=== PATIENT | female | born 1960 | race Caucasian/White ===

== ENCOUNTER 2021-07-14 09:49 | Outpatient (CLI) | payer MEDICARE, MEDICAID, SELFPAY ==
--- NOTE | 2021-07-14 18:36 | STRESSREP_ITS ---
Stress Test Report Original Note: Stress Test Report Exercise stress test. 61-year-old lady with a history of chest pain pain Medications metoprolol gabapentin. Stress protocol: Resting EKG demonstrates normal sinus rhythm with a rate of 71 bpm normal intervals are noted resting blood pressure is 120/84 mmHg. The patient exercised according to regular Yovani protocol for total duration of 2 minutes and 50 seconds. The maximum heart rate attained was 108 bpm which was 67% of max impact at heart rate maximum workload was 4.6 metabolic equivalents. At res t there were no ST or T wave changes noted to suggest ischemia and at peak exercise nonspecific ST changes were noted which did not meet the criteria for ischemia. The peak blood pressure was 144/82 mmHg. The patient apparently could not keep up with the treadmill speed. Conclusion Stress test with no EKG criteria for ischemia at a low workload. The low workload attained may affect sensitivity for detection of ischemia.
== END 2021-07-14 23:59 | disposition home or self-care (01) ==
LOC: CVS 09:51
PROVIDERS: PCP Family Medicine; Referring Provider Family Medicine; Visit Provider Family Medicine
DX: R07.89 Other chest pain (principal); F17.200 Nicotine dependence, unspecified, uncomplicated; E78.2 Mixed hyperlipidemia; Z86.73 Personal history of transient ischemic attack (TIA), and cerebral infarction without residual deficits
CPT/HCPCS: 93017

== ENCOUNTER 2021-07-30 06:35 | Outpatient (CLI) | payer MEDICARE, MEDICAID, SELFPAY ==
--- NOTE | 2021-07-30 09:20 | STRESSREP ---
Stress Test Report Date: 07-30-2021 Procedure: Pharmacologic stress nuclear imaging study Indications: Chest pain; preoperative cardiovascular evaluation Consent: Per the patient Procedure: The patient underwent pharmacologic (Regadenoson 0.4mg ) evaluation with a peak heart rate of 112 beats per minute (70%predicted maximal heart rate) and a peak blood pressure of 122/84 mmHg. The baseline ECG demonstrated normal sinus rhythm. The peak pharmacologic ECG demonstrated no obvious ECG changes. There were no cardiac dysrhythmias pretest, during pharmacologic infusion, or recovery. There was no complaint of chest discomfort during pharmacologic infusion or recovery. The examination was discontinued secondary to completion of protocol. Impression: 1. Pharmacologic (Regadenoson) evaluation 2. Peak pharmacologic ECG with no obvious ECG changes. 3. There were no cardiac dysrhythmias pretest, during pharmacologic infusion, or recovery. 4. Nuclear images pending Myocardial perfusion imaging study: Technique: The patient was injected with 14.5 millicuries of technetium 99m Cardiolite and subsequently rest SPECT Cardiolite nuclear imaging was obtained in the horizontal long, vertical long, and short axis views. The patient underwent pharmacologic (Regadenoson) evaluation with a peak heart rate of 112 beats per minute (70% percent predicted maximal heart rate) and a peak blood pressure of 124/84 mmHg. The patient was injected with 44.1 millicuries of technetium 99m Cardiolite and subsequently stress SPECT Cardiolite nuclear imaging was obtained in the horizontal long, vertical long, and short axis views. A gated Cardiolite study at peak stress was obtained. Interpretation: Rest and stress SPECT Cardiolite nuclear imaging status post realignment, normalization, and attenuation correction demonstrate the appearance of an area of diminished myocardial perfusion/tracer uptake in portions of the distal anterolateral segments which appears to be somewhat more prominent at rest as opposed to stress. There is end systolic thickening and brightening. The gated Cardiolite study demonstrates myocardial thickening and inward wall motion. The reported LVEF is 80%. Impression: 1. Rest and stress SPECT current nuclear imaging demonstrate myocardial perfusion changes in the distal anterolateral segments which appears to be somewhat more prominent at rest as opposed to stress potentially compatible with the effects of shifting soft tissue attenuation/artifact although an area of previous myocardial injury/infarction cannot necessarily be excluded with no myocardial perfusion changes considered diagnostic for associated stress-induced myocardial ischemia. 2. The gated Cardiolite study reports an LVEF of 80%. Comment: Consider further evaluation of left ventricular wall motion and systolic function with a transthoracic echocardiogram if clinically indicated. This note was generated with [employer] dictation software. It may contain incorrect words, spelling, and punctuation that were not noted in checking the note before signing.
== END 2021-07-30 23:59 | disposition home or self-care (01) ==
LOC: CVS 06:36
PROVIDERS: PCP Family Medicine; Referring Provider Family Medicine; Visit Provider Family Medicine
DX: R07.89 Other chest pain (principal)
CPT/HCPCS: 78452; 93017; A9500; A4216; J2785

== ENCOUNTER 2022-01-10 15:08 | Inpatient (IN) | payer MEDICARE, MEDICAID, SELFPAY ==
[2022-01-10] VITALS (9 sets, daily range): BP systolic 101–124; BP diastolic 63–89; PULSE 64–69; RESP 15–22; TEMP 35.9–36.7; O2SAT 87–97; BMI 34.6; BMI 33.7
--- NOTE | 2022-01-10 15:34 | NURSING ---
NO OLD EKGS
--- NOTE | 2022-01-10 15:42 | EKG12_ITS ---
Test Reason : SOB Blood Pressure : / mmHG Vent. Rate : 065 BPM Atrial Rate : 065 BPM P-R Int : 154 ms QRS Dur : 082 ms QT Int : 402 ms P-R-T Axes : -05 062 005 degrees QTc Int : 418 ms Normal sinus rhythm Normal ECG No previous ECGs available Confirmed by ANN ALEXANDER, RENE ([id number]), food editor LOPEZ GOVEA ([id number]) on 01/14/2022 2:38:24 PM Referred By: WILLIAM Confirmed By:CHARLY JUAREZ MD
[2022-01-10 16:19] LABS: Absolute Lymphocyte Count 2.07 X10^3/uL (0.83-4.51); Absolute Neutrophil Count 4.3 X10^3/uL (2.0-7.7); Basophil# 0.04 X10^3/uL; Basophil% 0.6 % (0-1); Eosinophil# 0.09 X10^3/uL; Eosinophils% 1.3 % (0-5); Hematocrit 48.3 % (37-47); Hemoglobin 15.5 g/dL (12.0-15.0); Lymphocyte # 2.07 X10^3/ul (0.83-4.51); Lymphocyte % 29.3 % (19-41); Mean Corp Hgb Conc 32.1 g/dL (32-36); Mean Corpuscular Hgb 29.8 pg (27.0-32.0); Mean Corpuscular Volume 92.9 fL (81-99); Monocyte# 0.55 X10^3/uL; Monocyte% 7.8 % (0-10); NRBC Flagged by Analyzer 0 % (0-5); Neutrophil % 60.9 % (47-70); Platelet Count 276 K/mm3 (150-450); RBC Distribution Width CV 14.3 % (11.6-14.6); RBC Distribution Width SD 49.1 fl (35.1-43.9); White Blood Count 7.1 K/mm3 (4.4-11.0)
--- NOTE | 2022-01-10 16:25 | ED.VIS.DYS ---
HPI History of Present Illness Chief Complaint: Shortness of Breath Narrative Narrative: 61-year-old female with history of COPD, asthma presenting with shortness of breath for about a week. She is describing coughing. Without production of sputum. She is not had fever, chills, body aches but does states she feels generally weak. He is not having any chest pain. Patient does not usually wear oxygen at home. She does not feel like he is wheezing. She is describing dyspnea on exertion and orthopnea. She states that when she lays down at night she has trouble breathing and this wakes her up from sleep and she feels like her heart quits. She is having some diarrhea but has not having nausea or vomiting. No history of DVT/PE. PFSH PFSH Medical History Anxiety and depression AVM (arteriovenous malformation) brain COPD with asthma GERD (gastroesophageal reflux disease) History of CVA (cerebrovascular accident) HLD (hyperlipidemia) HTN (hypertension) Obesity PTSD (post-traumatic stress disorder) Tobacco use Home Medications atorvastatin 80 mg tablet 80 mg PO DAILY 01/10/22 [History Last Taken Unknown] clopidogrel 75 mg tablet 75 mg PO DAILY 01/10/22 [History Last Taken Unknown] dicyclomine 10 mg capsule 10 mg PO DAILY 01/10/22 [History Last Taken Unknown] gabapentin 600 mg tablet 600 mg PO TID 01/10/22 [History Last Taken Unknown] loratadine 10 mg tablet 10 mg PO DAILY 01/10/22 [History Last Taken Unknown] metoprolol succinate 50 mg capsule sprinkle, ext. release 24 hr 50 mg PO DAILY 01/10/22 [History Last Taken Unknown] pantoprazole 40 mg tablet,delayed release 40 mg PO DAILY 01/10/22 [History Last Taken Unknown] quetiapine 100 mg tablet (Seroquel) 100 mg PO QHS 01/10/22 [History Last Taken Unknown] spironolactone 100 mg tablet 100 mg PO DAILY 01/10/22 [History Last Taken Unknown] zonisamide 50 mg capsule 50 mg PO DAILY 01/10/22 [History Last Taken Unknown] Allergy/AdvReac Type Severity Reaction Status Date / Time aspirin Allergy Other Verified 01/10/22 15:11 Penicillins Allergy Angioedema Verified 01/10/22 15:11 acetaminophen [From [facility]] AdvReac Other Verified 01/10/22 15:11 hydrocodone [From [facility]] AdvReac Other Verified 01/10/22 15:11 Family History (Updated 01/10/22 @ 19:[address] Mana Juarez MD) Mother Thyroid disorder Cancer Lung CA with tobacco use history. Father Cerebral hemorrhage in his youth in the secondary to trauma, reported cerebral hemorrhage as one trauma but had additional injuries as well. Surgical History (Updated 01/10/22 @ 19:[address] Mana Juarez MD) H/O brain surgery H/O right knee surgery History of appendectomy History of hysterectomy Social History (Updated 01/10/22 @ 19:[address] Mana Juarez MD) household members: spouse Smoking Status: Current every day smoker tobacco type: cigarettes Smoking packs per day: 1 Smoking cigarettes per day: 20.0 Years smoked: 50 Smoking pack-years: 50.00 alcohol intake: current alcohol intake frequency: holidays/special occasions only substance use type: does not use EXAM Physical Exam Const Vital Signs: 01/10/22 15:11 01/10/22 15:25 01/10/22 15:28 Temperature 96.7 F L Temperature Source Temporal Pulse Rate 69 Respiratory Rate 22 H Respiratory Effort Respiratory Depth Respiratory Pattern Blood Pressure 101/63 Blood Pressure Mean 75 Pulse Ox 91 87 91 Oxygen Delivery Method Room Air Room Air Nasal Cannula Oxygen Flow Rate (L/min) 2 01/10/22 16:05 01/10/22 16:35 01/10/22 17:09 Temperature Temperature Source Pulse Rate 64 Respiratory Rate 15 Respiratory Effort Short of Breath Respiratory Depth Normal Respiratory Pattern Normal Blood Pressure Blood Pressure Mean Pulse Ox 94 92 Oxygen Delivery Method Nasal Cannula Nasal Cannula Oxygen Flow Rate (L/min) 2 2 Positive well nourished General Appearance ED: NAD; Negative for pallor HEENT Reports moist mucous membranes Eyes PERRL and EOMs intact bilaterally Neck no lymphadenopathy Resp normal respiratory effort Auscultation: diminished lung sounds right lower Cardio regular rate and regular rhythm GI non-tender Extremity General Extremety ED: Negative for edema or tenderness General Extremity: Negative for edema Neuro oriented x3 and CN's II-XII intact bilaterally Sensorium / Orientation: alert Skin no wounds and skin turgor normal General Skin Exam: Negative for jaundice or pallor MDM MDM MDM Narrative Medical decision making narrative: Patient presenting with dyspnea for the last week. He is describing orthopnea as well has dyspnea on exertion. She is hypoxic and requiring oxygen. He is not experiencing any chest pain. I did obtain an EKG which on my interpretation is normal sinus rhythm with a ventricular rate of 65 bpm without sign of ischemic change or dysrhythmia. Chest x-ray shows a right-sided pleural effusion on my interpretation and the radiologist agree. He does state that there is pneumonia here. Patient does not have elevated white blood cell count and her WBC is 7.1. Hemoglobin medic are stable. Platelets are normal. Renal function electrolytes within normal limits. BNP is normal. High-sensitivity troponin is 4. I do not suspect PE as a source of her symptoms. Likely due to the pleural effusion. I spoke with the hospitalist for admission. Impression: 1. Hypoxic respiratory failure 2. Right pleural effusion 3. Generalized weakness 4. Orthopnea Lab Data Attestation: I reviewed the patient's lab results. Labs: Laboratory Results - last 24 hr 01/10/22 01/10/22 01/10/22 16:10 16:10 16:10 WBC 7.1 RBC 5.20 Hgb 15.5 H Hct 48.3 H MCV 92.9 MCH 29.8 MCHC 32.1 RDW Std Deviation 49.1 H RDW Coeff of Melia 14.3 Plt Count 276 MPV 10.0 Immature Gran % (Auto) 0.100 Neut % (Auto) 60.9 Lymph % (Auto) 29.3 Kendall % (Auto) 7.8 Eos % (Auto) 1.3 Baso % (Auto) 0.6 Absolute Neuts (auto) 4.3 Absolute Lymphs (auto) 2.07 Nucleated RBC % 0 Sodium 140 Potassium 4.3 Chloride 107 Carbon Dioxide 30.0 Anion Gap 3 L BUN 9 Creatinine 0.80 Estim Creat Clear Calc 66.45 Est GFR (MDRD) Af Amer 93 Est GFR (MDRD) Non-Af 77 BUN/Creatinine Ratio 11.2 Glucose 90 Calcium 8.6 Troponin I High Sens B-Natriuretic Peptide 39.5 01/10/22 16:10 WBC RBC Hgb Hct MCV MCH MCHC RDW Std Deviation RDW Coeff of Melia Plt Count MPV Immature Gran % (Auto) Neut % (Auto) Lymph % (Auto) Kendall % (Auto) Eos % (Auto) Baso % (Auto) Absolute Neuts (auto) Absolute Lymphs (auto) Nucleated RBC % Sodium Potassium Chloride Carbon Dioxide Anion Gap BUN Creatinine Estim Creat Clear Calc Est GFR (MDRD) Af Amer Est GFR (MDRD) Non-Af BUN/Creatinine Ratio Glucose Calcium Troponin I High Sens 4 B-Natriuretic Peptide Radiography Diagnostic Testing: Clinical Impression(s) from Imaging Studies Chest X-Ray 01/10/22 16:39 IMPRESSION: Right-sided effusion with right lower lobe pneumonia. Electronically Signed: Raul Chiu MD at 17:05 EDT , Discharge Plan Triage Chief Complaint: Shortness of Breath ED Provider: Ori Madden Dx/Rx/DC Orders Primary Care Provider: Sawyer Bacon
[2022-01-10 16:26] LABS: Anion Gap 3 (5-15); BUN 9 mg/dL (7-18); BUN/Creat Ratio 11.2 RATIO (10-20); Calcium,Total 8.6 mg/dL (8.5-10.1); Chloride 107 mmol/L (98-107); EST Glomerular Filtration Rate 77 mL/min (>60); Est Glom Filt Rate - Afr Amer 93 mL/min (>60); Estimated Creatinine Clearance 66.45 ml/min; Glucose 90 mg/dL (74-106); Potassium 4.3 mmol/L (3.5-5.1); Sodium Level 140 mmol/L (136-145)
--- NOTE | 2022-01-10 16:32 | EKG12_ITS ---
Test Reason : SOB Blood Pressure : / mmHG Vent. Rate : 065 BPM Atrial Rate : 065 BPM P-R Int : 154 ms QRS Dur : 082 ms QT Int : 402 ms P-R-T Axes : -05 062 005 degrees QTc Int : 418 ms Normal sinus rhythm Normal ECG Confirmed by BRITT ALEXANDER, HARRISON ([id number]), editorial specialist LOPEZ GOVEA ([id number]) on 01/12/2022 12:45:48 PM Referred By: WILLIAM Confirmed By:HARRISON DE LA TORRE MD
--- NOTE | 2022-01-10 16:39 | RAD_ITS ---
EXAM: XR CHEST, 1 VIEW CLINICAL INDICATION: cough TECHNIQUE: Frontal view of the chest. This report was created using [employer] report generation technology. COMPARISON: None. FINDINGS: LUNGS AND PLEURAL SPACES: See below. HEART: Unremarkable. Cardiac silhouette not enlarged. MEDIASTINUM: Central airways and mediastinal contour are unremarkable. BONES/JOINTS: There is a moderate right-sided effusion with right lower lobe airspace disease representing pneumonia. SOFT TISSUES: Unremarkable. RAD/Chest 1 View (Portable) IMPRESSION: Right-sided effusion with right lower lobe pneumonia. Electronically Signed: Raul Chiu MD at 17:05 EDT ,
[2022-01-10 16:58] LABS: BNP,B-Type NATRIURETIC PEPTIDE 39.5 pg/mL (0-100)
[2022-01-10 17:42] LABS: Troponin-I HS 4 pg/mL (3.0-54.0)
--- NOTE | 2022-01-10 18:28 | HP.PCM.HOS_ITS ---
HPI - General General Date of Admission: 01/10/22 Date of Service: 01/10/22 Chief Complaint: Dyspnea. HPI Narrative The patient is a 61 y/o F w/ PMHx: Obesity, COPD, Asthma, Tobacco use, HTN, HLD, Anxiety and Depression/PTSD, Hx CVA, Hx Frontal Lobe AVM s/p resection, GERD who presents to the [facility] ED on 01/10/22 with history of progressively worsening dyspnea over the last week with dry nonproductive cough with no fevers or chills nor any body aches but significant fatigue malaise with no associated pleuritic chest discomfort and no specific wheezing however she notes the dyspnea is worse when she exerts herself and she does admit to orthopnea with trouble breathing whenever she attempts to lay down noted to wake her up specifically from sleep feeling like her heart is palpating with incidentally noted loose stools but no nausea or emesis prompting eventual ED evaluation. She does admit that she has been having several weeks to potentially months of right sided pleuritic discomfort, worse with deep inspiratory effort and also with any coughing. She denies marked weight loss or night sweats. Work-up in the ED included T96.7, he art rate 69, BP 101/63, respiratory rate 22, initially 91% on room air however with exertion patient decreased to 87% on room air with improvement to 91 to 94% on 2 L nasal cannula however this is at rest, CBC with WC 7.1, hemoglobin 15.5, platelet 276 without any shift, BMP unremarkable, BNP 39.5, troponin 4, rapid COVID antigen negative, chest x-ray with a right-sided effusion with concern for right lower lobe pneumonia, EKG with sinus rhythm with no acute evidence of ischemia. In the ED discussed patient's presentation with some lower suspicion for pneumonia given no marked fevers, chills, no marked WC elevation or left shift and given long-term history of smoking with ongoing several week to month history of pleuritic discomfort need to further assess for any malignancy as source of findings on chest x-ray to which patient is amenable. [facility] Medical History Anxiety and depression AVM (arteriovenous malformation) brain COPD with asthma GERD (gastroesophageal reflux disease) History of CVA (cerebrovascular accident) HLD (hyperlipidemia) HTN (hypertension) Obesity PTSD (post-traumatic stress disorder) Tobacco use Home Medications atorvastatin 80 mg tablet 80 mg PO DAILY 01/10/22 [History Last Taken Unknown] clopidogrel 75 mg tablet 75 mg PO DAILY 01/10/22 [History Last Taken Unknown] dicyclomine 10 mg capsule 10 mg PO DAILY 01/10/22 [History Last Taken Unknown] gabapentin 600 mg tablet 600 mg PO TID 01/10/22 [History Last Taken Unknown] loratadine 10 mg tablet 10 mg PO DAILY 01/10/22 [History Last Taken Unknown] metoprolol succinate 50 mg capsule sprinkle, ext. release 24 hr 50 mg PO DAILY 01/10/22 [History Last Taken Unknown] pantoprazole 40 mg tablet,delayed release 40 mg PO DAILY 01/10/22 [History Last Taken Unknown] quetiapine 100 mg tablet (Seroquel) 100 mg PO QHS 01/10/22 [History Last Taken Unknown] spironolactone 100 mg tablet 100 mg PO DAILY 01/10/22 [History Last Taken Unknown] zonisamide 50 mg capsule 50 mg PO DAILY 01/10/22 [History Last Taken Unknown] Allergy/AdvReac Type Severity Reaction Status Date / Time aspirin Allergy Other Verified 01/10/22 15:11 Penicillins Allergy Angioedema Verified 01/10/22 15:11 acetaminophen [From [place]] AdvReac Other Verified 01/10/22 15:11 hydrocodone [From [place]] AdvReac Other Verified 01/10/22 15:11 Family History (Updated 01/10/22 @ 19:[address] Mana Juarez MD) Mother Thyroid disorder Cancer Lung CA with tobacco use history. Father Cerebral hemorrhage in his youth in the secondary to trauma, reported cerebral hemorrhage as one trauma but had additional injuries as well. Surgical History (Updated 01/10/22 @ 19:[address] Mana Juarez MD) H/O brain surgery H/O right knee surgery History of appendectomy History of hysterectomy Social History (Updated 01/10/22 @ 19:[address] Mana Juarez MD) household members: spouse Smoking Status: Current every day smoker tobacco type: cigarettes Smoking packs per day: 1 Smoking cigarettes per day: 20.0 Years smoked: 50 Smoking pack-years: 50.00 alcohol intake: current alcohol intake frequency: holidays/special occasions only substance use type: does not use ROS ROS Narrative Admission Review of Systems: CONSTITUTIONAL: No weight loss, fever, chills, + weakness or fatigue. HEENT: Eyes: No visual loss, blurred vision, double vision or yellow sclerae. Ears, Nose, Throat: No hearing loss, sneezing, congestion, runny nose or sore throat. SKIN: No rash or itching, lesions, wounds. CARDIOVASCULAR: + Pleuritic chest discomfort, possibly palpitations, orthopnea. No edema, syncopal events. RESPIRATORY: + shortness of breath, cough with occasional sputum, occasional wheezing, No hemoptysis. GASTROINTESTINAL: No anorexia, nausea, vomiting or diarrhea, abdominal pain, melena, BRBPR. GENITOURINARY: No dysuria, frequency, urgency or retention. NEUROLOGICAL: + Hx Brain AVM s/p prior resection. No headache, dizziness, syncope, paralysis, ataxia, numbness or tingling in the extremities, focal weakness, change in bowel or bladder control, seizure. MUSCULOSKELETAL: + muscle, back pain, joint pain or stiffness. HEMATOLOGIC: No anemia, bleeding or bruising. LYMPHATICS: No enlarged nodes. No history of splenectomy. PSYCHIATRIC: + history of depression or anxiety/PTSD. ENDOCRINOLOGIC: No reports of sweating, cold or heat intolerance. No polyuria or polydipsia. ALLERGIES: + history of asthma, rhinitis. Vital Signs Vital Signs Vital Signs: 01/10/22 15:11 01/10/22 15:25 01/10/22 15:28 Temperature 96.7 F L Temperature Source Temporal Pulse Rate 69 Respiratory Rate 22 H Respiratory Effort Respiratory Depth Respiratory Pattern Blood Pressure 101/63 Blood Pressure Mean 75 Pulse Ox 91 87 91 Oxygen Delivery Method Room Air Room Air Nasal Cannula Oxygen Flow Rate (L/min) 2 01/10/22 16:05 01/10/22 16:35 01/10/22 17:09 Temperature Temperature Source Pulse Rate 64 Respiratory Rate 15 Respiratory Effort Short of Breath Respiratory Depth Normal Respiratory Pattern Normal Blood Pressure Blood Pressure Mean Pulse Ox 94 92 Oxygen Delivery Method Nasal Cannula Nasal Cannula Oxygen Flow Rate (L/min) 2 2 Weight Weight: 208 lb Body Mass Index (BMI) 34.6 Physical Exam Narrative Physical Examination: General: Awake, alert, oriented x 3 and cooperative, seated upright in the ED bed, fatigued, no acute distress. Skin: Normal color, normal turgor, no icterus, no cyanosis. HEENT: AT/NC, EOMI, PERRLA, mildly dry MM, no carotid bruits or or markedly noted JVD; however, thickened neck makes evaluation difficult. Lungs: Diminished, greater bases, right greater than left, no respiratory distress noted, no significant marked rales or rhonchi, occasional end expiratory wheeze noted but minimal. Heart: Regular rate and rhythm; no gallop, rub audible. Abdomen: Soft, obese, NTTP, ND, normal BS, no HSM. Extremities: No cyanosis, clubbing, or edema. Neurological: Patient awake, alert, oriented as noted, cognitive function intact; pupils equally reactive to light and accommodation, cranial nerves II- XII grossly normal, moving all 4 extremities, no focal deficits, strength moderately global decrease secondary to acute presentation. Psychiatric: Affect appears fatigued otherwise normal, no acute evidence of de pressive or anxiety feelings. Results Lab / Micro Data Result Diagrams: 01/10/22 16:10 01/10/22 16:10 Labs: Laboratory Results - last 24 hr 01/10/22 16:10: WBC 7.1, RBC 5.20, Hgb 15.5 H, Hct 48.3 H, MCV 92.9, MCH 29.8, MCHC 32.1, RDW Std Deviation 49.1 H, RDW Coeff of Melia 14.3, Plt Count 276, MPV 10.0, Immature Gran % (Auto) 0.100, Neut % (Auto) 60.9, Lymph % (Auto) 29.3, Starr % (Auto) 7.8, Eos % (Auto) 1.3, Baso % (Auto) 0.6, Absolute Neuts (auto) 4.3, Absolute Lymphs (auto) 2.07, Nucleated RBC % 0 01/10/22 16:10: Sodium 140, Potassium 4.3, Chloride 107, Carbon Dioxide 30.0, Anion Gap 3 L, BUN 9, Creatinine 0.80, Estim Creat Clear Calc 66.45, Est GFR (MDRD) Af Amer 93, Est GFR (MDRD) Non-Af 77, BUN/Creatinine Ratio 11.2, Glucose 90, Calcium 8.6 01/10/22 16:10: B-Natriuretic Peptide 39.5 01/10/22 16:10: Troponin I High Sens 4 Micro: Microbiology 01/10/22 16:00 Nasal Secretion SARS-CoV-2 Antigen (Rapid) - Final Radiology Impression Chest X-Ray 01/10/22 16:39 IMPRESSION: Right-sided effusion with right lower lobe pneumonia. Electronically Signed: Raul Chiu MD at 17:05 EDT , Assessment & Plan Assessment/Plan (1) Hypoxia: (2) Pneumonia: PLAN: Plan The patient is a 61 y/o F w/ PMHx: Obesity, COPD, Asthma, Tobacco use, HTN, HLD, Anxiety and Depression/PTSD, Hx CVA, Hx Frontal Lobe AVM s/p resection, GERD who presents to the [facility] ED on 01/10/22 with history of progressively worsening dyspnea over the last week with dry nonproductive cough with no fevers or chills nor any body aches but significant fatigue malaise with no associated pleuritic chest discomfort and no specific wheezing however she notes the dyspnea is worse when she exerts herself and she does admit to orthopnea with trouble breathing whenever she attempts to lay down noted to wake her up specifically from sleep feeling like her heart is palpating with incidentally noted loose stools but no nausea or emesis prompting eventual ED evaluation. #1. Acute Hypoxia with Dyspnea, Exertional, Orthopnea with Possible RLL PNA, R Sided Effusion, some concern Underlying Malignancy with Effusion: Will admit to MS, maintain on oxygen with wean as tolerated to room air, continue ATC duonebs, PRN albuterol, maintained on IV Levaquin pending further studies as noted with de-escalation if no obvious infectious source, HOB, IS parameters w/ pending sputum cultures, full respiratory viral panel, COVID PCR given timeline and urine antigens as well as procalcitonin. Given history and findings with no fever, no WBC elevation or L shift will obtain CT chest to be cautious and may be appropriate pending findings for thoracentesis however given plavix usage may require hold timeline. BNP is normal range of note but pending further imaging could consider ECHO also. #2. History CVA: We will continue patient home Plavix, statin, hypertensive regimen, no diabetic history. #3. History frontal lobe AVM: Status post prior craniotomy, notes she has been stable and required no significant intervention since, maintained on chronic Plavix, statin and hypertensive regimen given CVA history concurrently she reports. #4. Hypertension: Continue home regimen including metoprolol, spironolactone with hold parameters as, PRN hydralazine. #5. Hyperlipidemia: We will continue patient on statin therapy. #6. Anxiety and depression: We will continue patient home psychiatric regimen, encourage continued outpatient follow-up and counseling especially for underlying PTSD. #7. Chronic COPD/Asthma: Not on any routine regimen, Will maintain on oxygen with wean as tolerated to room air, continue ATC duonebs, PRN albuterol, HOB, IS parameters. #8. Tobacco Abuse: Encouraged cessation, inpatient consultation per RT, NR if desired. #9. GERD: We will continue patient on PPI. #10. DVT prophylaxis: SCDs, Lovenox. #11. CODE status: Patient HCPOA is her significant other who is present and living will is currently in place. Discussed CODE status at length including difference between FULL code, DNR-CCA and DNR-CC status. Following discussions about the differences in these status, requested Full Code status. Advanced Care Planning Face to Face Time: 16 minutes. Charges/Coding Visit Charges Inpatient E&M: 41950 Init Hosp L3 Procedures Hospitalists Procedures: 94580 Advncd Care Plan 30 Min
--- NOTE | 2022-01-10 20:32 | CT_ITS ---
STUDY: CTA CHEST REASON FOR EXAM: Female, 61 years old. Hypoxia. Question mass. Shortness of breath. History of COPD and asthma. RADIATION DOSAGE (If Supplied By Facility): CTDIvol = ( 11.27 ) mGy, DLP = ( 551.35 ) mGycm TECHNIQUE: The examination was performed with the intravenous administration of IV 100mL Isovue-370. Post-processing of the angiographic images was performed, with multiplanar reformation and 3D reconstruction. Individualized dose optimization techniques were used for this CT. COMPARISON: Chest, 01/10/2022. FINDINGS: Normal enhancement of the main pulmonary artery and right and left pulmonary arteries. Normal enhancement of the bilateral peripheral pulmonary arteries. There is no demonstrated pulmonary embolism. Mild atherosclerotic tortuosity of the thoracic aorta. There is no demonstrated aortic dissection. Normal heart and pericardium. No coronary artery calcifications. Question mild narrowing of the mid to distal superior vena cava. There is reflux of contrast into the azygos vein extends downward into the abdomen. Otherwise normal mediastinum. Normal hilar regions. Normal visualized trachea and bronchi. The lungs are well expanded. There is a larger right pleural effusion. There is subsegmental atelectasis most marked in the right lower and right middle lobes. There is a 0.6 x 0.5 x 0.4 cm ovoid soft tissue nodule in the right upper lobe best seen on image 151 of series 2 the lungs appear otherwise clear. Normal chest wall structures. Normal osseous structures. Normal visualized upper abdomen. CT/CTA Chest W/WO Contrast IMPRESSION: 1. No evidence of pulmonary embolus. 2. No aortic dissection or aneurysm. 3. Larger right pleural effusion with subsegmental atelectasis. 4. Small soft tissue nodule in the right upper lobe. Fleischner Society Guidelines for low-risk patients recommend follow-up chest CT at 6-12 months. If unchanged consider an additional follow-up CT at 18-24 months. For high-risk patients (smoking history or other known risk factors) initial follow-up chest CT at 6-12 months and if unchanged, 18-24 months. 5. Mild narrowing of the superior vena cava of unknown etiology Electronically Signed: Kodi Tavera DO at 21:30 EDT Reading Location ID and State: [address] [place] [address] Tel [phone], Service support ,
[2022-01-10] MEDS: Gabapentin 600 MG Tablet PO (21:42)
[2022-01-10] MEDS: QUEtiapine 100 MG Tablet PO (21:43)
[2022-01-10] MEDS: levoFLOXacin IV 750 MG/150 ML BAG 100 MG IV (22:31)
[2022-01-10] MEDS: 0.9% Saline Lock 10 ML Syringe IV (22:31)
[2022-01-10 22:45] LABS: Procalcitonin < 0.20 ng/mL (0.00-0.09)
[2022-01-10] MEDS: guaiFENesin 10 ML UDC (200MG/10ML) 20 ML PO (23:15)
[2022-01-10] MEDS: Acetaminophen 325 MG Tablet 650 MG PO (23:15)
[2022-01-11] VITALS (14 sets, daily range): BP systolic 71–133; BP diastolic 35–72; PULSE 66–85; RESP 16–22; TEMP 36.4–36.9; O2SAT 92–96
--- NOTE | 2022-01-11 | IMM_PTH ---
PATIENT: YINKA BUSH LOC: MS3 U#:[id number] AGE/SX: 61/F ROOM: [facility] [place] [facility] [place]/10/[address]: Dr. Marissa Tao DO : 1960 BED: 1 DIS: 01/13/2022 SPEC #: [id number] RECD: 01/13/22 10:05 STATUS: ROBBIE REQ #: [id number] KAT: 01/11/22 00:[address]: Marissa Tao DEPT: IMMUNOHISTOCHEMISTRY RECD BY: Lalitha Rodriguez ENTERED: 01/13/22 10:08 SP TYPE: IMMUNO OTHR DR: MD Dr. Yovani Sood MD Dr. Derek Brown, DO Dr. Jeffrey Burkey, MD Christina Muller, POLYMER SCIENTIST-C Tissues: THORACIC FLUID Procedures: RCC (add) Thyroglobulin (add) NAPSIN A (add) CA-125 (add) Juve Ret (add) CK20 (add) CK7 (add) CK8 (add) HEP PAR (add) KI-67 (add) P53 (add) VT (add) TTF1 (add) Vimentin (add) 34BE12 (add) Pankeratin (add) P40 (add) CDX2 (add) ER (initial) S-100 (add) PHYSICIAN & [place] [id number] SPECIMEN INFORMATION: Tissue Source: Thoracentesis fluid Clinical Info: Pleural effusion Specimen Number: [id number] CPT code: 28520, 09349 x19 METHODOLOGY: Deparaffinized sections of prefer/formalin-fixed tissue or PAP/DQ stained slides are incubated with monoclonal/polyclonal antibodies/oligonucleotide probes. Localization is made via biotin free immunoperoxidase method. Appropriate controls are performed and reacted as expected. Results on target cell population are indicated in the following table: RESULTS: ANTIBODY / CLONE RESULT ER (6F11) negative VT (1E2) negative AE1-3 (AE1/AE3/PCK26) positive CK7 (OV-TL12/30) positive CK8 (36zdasA50) positive CK20 (KS20.8) negative CDX2 (BTV2583M) negative Vimentin (V9) negative 34BE12 (34BE12) positive S-100 (4C4.9) negative TTF-1 (8G7G3/1) positive Napsin A (Rabbit Polyclonal) positive HepPar (OCh1E5) negative RCC (PN-15) negative Thyro (2H11+6E1) negative CALRET (polyclonal) negative P40 (BC28) negative CA125 (OC125) positive, occasional cell P53 (DO-7) positive, 80% Ki-67 (30-9) positive, 10% ? 15% These tests were developed and their performance characteristics determined by [facility]. They may not have been cleared or approved by the U.S. Food and Drug Administration. The FDA has determined that such clearance or approval is not necessary. The above immunohistochemical/dualISH markers are ordered and reviewed by the Pathologist. INTERPRETATION: Thoracentesis fluid (cell block): - Non-small cell carcinoma, adenocarcinoma. - The IHC profile is consistent with a lung primary. Clinical correlation necessary. AM:rosamaria 01/17/2022
[2022-01-11 01:18] LABS: M R Staph aureus DNA By PCR Negative (Negative); Probe Check PASS; Specimen Processing Control PASS
[2022-01-11] MEDS: Gabapentin 600 MG Tablet PO ×3 (05:32→22:22)
[2022-01-11 06:31] LABS: Absolute Lymphocyte Count 1.47 X10^3/uL (0.83-4.51); Absolute Neutrophil Count 3.4 X10^3/uL (2.0-7.7); Basophil# 0.03 X10^3/uL; Basophil% 0.5 % (0-1); Eosinophil# 0.08 X10^3/uL; Eosinophils% 1.4 % (0-5); Hematocrit 43.4 % (37-47); Hemoglobin 14.1 g/dL (12.0-15.0); Lymphocyte # 1.47 X10^3/ul (0.83-4.51); Lymphocyte % 26.3 % (19-41); Mean Corp Hgb Conc 32.5 g/dL (32-36); Mean Corpuscular Hgb 30.5 pg (27.0-32.0); Mean Corpuscular Volume 93.7 fL (81-99); Mean Platelet Vol. 10.1 fl (6.2-12.0); Monocyte# 0.56 X10^3/uL; NRBC Flagged by Analyzer 0 % (0-5); Neutrophil # 3.44 X10^3/uL (2.7-7.7); Neutrophil % 61.8 % (47-70); Platelet Count 211 K/mm3 (150-450); RBC Distribution Width CV 14.1 % (11.6-14.6); Red Blood Count 4.63 M/mm3 (4.2-5.4); White Blood Count 5.6 K/mm3 (4.4-11.0)
[2022-01-11 06:59] LABS: ALB/GLOB Ratio 0.7 RATIO (0.9-2.4); AST(SGOT) 19 U/L (15-37); Alanine Aminotransfer ALT/SGPT 26 U/L (13-56); Albumin, Serum 2.5 g/dL (3.2-5.0); Alkaline Phosphatase 147 U/L (45-117); Anion Gap 4 (5-15); BUN 9 mg/dL (7-18); BUN/Creat Ratio 14.2 RATIO (10-20); Chloride 104 mmol/L (98-107); Creatinine, Serum 0.64 mg/dL (0.55-1.02); EST Glomerular Filtration Rate 101 mL/min (>60); Est Glom Filt Rate - Afr Amer 122 mL/min (>60); Estimated Creatinine Clearance 83.06 ml/min; Globulin 3.6 g/dL (2.2-4.2); Glucose 85 mg/dL (74-106); Potassium 4.3 mmol/L (3.5-5.1); Protein, Total 6.1 g/dL (6.4-8.2); Sodium Level 139 mmol/L (136-145)
--- NOTE | 2022-01-11 07:07 | US_ITS ---
PROCEDURE: ULTRASOUND GUIDED THORACENTESIS. DATE: 01/11/2022. INDICATION: Female, 61 years old. Right pleural effusion. PHYSICIAN: Everett Westfall M.D. PROCEDURE: The risks, benefits, and alternatives to the procedure were explained to the patient. The specific risks of bleeding, infection, and pneumothorax requiring chest tube insertion were discussed and accepted. Written informed consent was obtained. Ultrasonographic evaluation of the right lower pleural space was carried out. An adequate pocket was identified. The patient was placed in the sitting, upright position. The overlying skin was prepped and draped in sterile fashion. 1% lidocaine was administered subcutaneously for local anesthesia. Under ultrasound guidance, a 5 Taiwanese thoracentesis needle/catheter system was advanced into the right posterior lower pleural fluid collection. Approximately 1300 mL of lisbet-colored fluid was drained. The catheter was removed, and a sterile dressing was applied. A specimen was collected and sent to the laboratory for analysis, as requested by the referring clinician. The patient tolerated the procedure well. US/Thoracentesis W US IMPRESSION: Ultrasound-guided right thoracentesis. Electronically Signed: Everett Westfall MD at 13:19 EDT ,
--- NOTE | 2022-01-11 07:10 | CT_ITS ---
STUDY: CT CHEST WITHOUT CONTRAST REASON FOR EXAM: Female, 61 years old. Large pleural effusion -- please do after thoracentesis RADIATION DOSAGE (If Supplied By Facility): CTDIvol = ( 18.46 ) mGy, DLP = ( 641.18 ) mGycm TECHNIQUE: Transaxial imaging was performed without the administration of intravenous contrast material. Multiplanar coronal and sagittal images were reformatted. Individualized dose optimization techniques were used for this CT. COMPARISON: Comparison is made with prior study dated 01/10/2022. FINDINGS: CHEST The patient is status post right thoracentesis. The right pleural effusion has decreased in size as compared to prior study. There is a 4.5 mm noncalcified nodule in the posterior aspect of the right upper lobe. Persistent volume loss and airspace disease in the right middle lobe. Persistent airspace disease in the right lower lobe as well as focal infiltrate in the left lower lobe. There are calcifications of the coronary arteries. Normal mediastinum. Normal hilar regions. Normal unenhanced pulmonary arteries. There is atherosclerotic calcification of the aortic arch with tortuosity and elongation of the aortic arch and descending thoracic aorta. There are multi-level degenerative changes of the thoracic spine. There is no demonstrated abnormality of the visualized upper abdomen. CT/Chest without Contrast IMPRESSION: Status post right thoracentesis. 4.5 mm noncalcified nodule in the posterior aspect of the right upper lobe. Persistent infiltrate and airspace disease in the right lower lobe and right middle lobe as well as at the left lung base. Electronically Signed: Everett Westfall MD at 14:06 EDT ,
[2022-01-11] MEDS: Ipratropium/Albuterol Sulfate 3 ML AMPUL.NEB INHALATION ×4 (07:28→19:43)
[2022-01-11 08:04] LABS: LDH 297 U/L (84-246)
[2022-01-11 09:12] LABS: Platelet Count 231 K/mm3 (150-450)
[2022-01-11 09:29] LABS: International Normalized Ratio 1.1; Prothrombin Time (Protime)PT. 13.8 SECONDS (11.7-14.9)
[2022-01-11 09:30] LABS: Partial Thromboplast Time 30.5 Seconds (24.1-36.2)
[2022-01-11] MEDS: Clopidogrel Bisulfate 75 MG Tablet PO (10:35)
[2022-01-11] MEDS: 0.9% Saline Lock 10 ML Syringe IV ×2 (10:35→22:21)
[2022-01-11] MEDS: Enoxaparin 40 MG/0.4 ML Syringe SC (10:35)
[2022-01-11] MEDS: Zonisamide 50 MG Capsule PO (10:35)
[2022-01-11] MEDS: Pantoprazole Sodium 40 MG Tablet PO (10:35)
[2022-01-11] MEDS: Loratadine 10 MG Tablet PO (10:35)
[2022-01-11] MEDS: Dicyclomine 10 MG Capsule PO (10:35)
--- NOTE | 2022-01-11 10:50 | CASEMGMT ---
ELSIE BARAKAT Face to Face with patient for initial transition planning/care coordination assessment. RN CM introduced self and role at [facility]. Patient lying in bed, alert and oriented. Patient willing to participate in assessment and is able to answer all questions appropriately. Care providers, pharmacy, and demographics verified. Patient wishes to discharge home, denies need for home health at this time. Patient states she has no further needs or concerns at this time. CM to follow for discharge planning needs that may arise. PCP: Arleen Specialists: Patient states she sees several doctors in the [facility]erred [facility]acy: [facility] Insurance: [employer] Prescription Benefit: yes Living Will/HPOA: yes, significant other, JACQUELINE Pérez LNOK: significant other Living Arrangements: Patient lives with significant other in a single story home with 3 step with railing. Patient states she is independent at home. Transportation: self, significant other DME/HHC: Patient states she has shower chair, raised toilet, nebulizer, and BP cuff at home. Patient states she has had HHC in the past but could not recall agency. No previous SNF. Disposition Plan: Patient to discharge home with family support and follow-up plans in place. Анна CANTU, RN, CM
[2022-01-11] MEDS: Lidocaine 2% (10 ml mdv) 10 ML Vial INFILT (12:43)
--- NOTE | 2022-01-11 12:44 | FLU_PTH ---
PATIENT: YINKA BUSH LOC: MS3 U#:[id number] AGE/SX: 61/F [place] [facility] [place]: Dr. Marissa Tao DO : 1960 BED: 1 DIS: 01/13/2022 SPEC #: [id number] RECD: 01/11/22 13:25 STATUS: ROBBIE REQ #: [id number] KAT: 01/11/22 12:[address]: Marissa Tao DEPT: CYTOLOGY RECD BY: Blanca Bethea ENTERED: 01/12/22 08:12 SP TYPE: Fluid OTHR DR: MD Dr. Yovani Sood MD Dr. Derek Brown, DO Dr. Jeffrey Burkey, MD Christina Muller, LAB DIRECTOR-C Tissues: Pleural fluid, NOS Procedures: Special Stain Group II Mucicarmine Stain (control) Surgery Specimen Level IV Cytospin Fluid HEADER OPERATION: Right thoracentesis PRE-OP DIAGNOSIS: Pleural effusion TISSUE SUBMITTED: Thoracentesis fluid for cytology DIAGNOSIS CYTOLOGY Thoracentesis fluid for cytology (cytospin and cell block): Positive for malignant cells consistent with metastatic non-small cell carcinoma, adenocarcinoma. See comment. AM:woody 01/13/2022 COMMENT Immunohistochemistry ([id number]) supports a lung primary. Mucin stain with matched control supports the above diagnosis and is positive in tumor cells., Case has been reviewed in consultation with Dr. Odom who concurs with the above diagnosis. IDC:[facility]J CYTOLOGY STUDY Slides are reviewed. CYTOLOGY GROSS Received is 90 ml of hazy yellow fluid labeled with the patient's name and and designated per the requisition as thoracentesis. Submitted for cytology preparation including cell block. / woody 01/12/2022 TC:0 CPT: 84708, 22473, 34972
[2022-01-11 13:54] LABS: Body Fluid Mononuclear WBC # 0.737 10^3/uL; Body Fluid Mononuclear WBC % 98.4 %; Body Fluid Polynuclear WBC # 0.012 10^3/uL; Body Fluid Polynuclear WBC % 1.6 %; Body Fluid Total Cells Counted 0.955 10^3/ul; White Blood Count/Body Fluid 0.749 10^3/uL
[2022-01-11 13:56] LABS: Appearance/Body Fluid CLEAR; Auto B Fluid Analyzer BKGD Ct COUNTS W/IN LIMITS (W/IN LIMITS); Color/Body Fluid YELLOW; Source- Body Fluid PLEURAL FLUID
[2022-01-11 13:59] LABS: Red Cell Count/Body Fluid 2 /mm3
[2022-01-11 14:01] LABS: Body Fluid QC Type(s) BF3Q
[2022-01-11 14:20] LABS: Glucose, Body Fluid 101 mg/dL (40-70); LDH,Body Fluid 614 Units/l (Not Establ.); Protein, Body Fluid 4.4 g/dL (Not Establ.)
--- NOTE | 2022-01-11 14:43 | PCM.PN.HOSP ---
Subjective Subjective He has had a significant amount of pleuritic pain on the right side of her chest for approximately a month or so. Shortness of breath has been worsening recently. We discussed the fact she has a large pleural effusion the fact she needs a thoracentesis. I explained the process of a thoracentesis and what this would yield for us and she was agreeable. The patient admits to ongoing tobacco abuse although she states she is cut down and is currently smoking anywhere from 2 to 10 cigarettes daily. He denies any previous pleural effusions or significant respiratory problems in the past. Objective Data Objective Data Vital Signs: Vital Signs Temp Pulse Resp BP Pulse Ox O2 Del Method O2 Flow Rate 97.8 F 73 20 H 95/53 L 94 Room Air 3 01/11/22 14:27 01/11/22 14:40 01/11/22 14:40 01/11/22 14:27 01/11/22 14:36 01/11/22 14:36 01/11/22 14:30 Oxygen Flow Rate (L/min) [1320 3 ] Oxygen Flow Rate (L/min) [1310 3 ] Oxygen Flow Rate (L/min) [1300 3 ] Oxygen Flow Rate (L/min) [1251 3 ] Oxygen Flow Rate (L/min) [1243 3 ] Oxygen Flow Rate (L/min) [1230 3 ] Oxygen Flow Rate (L/min) 3 Oxygen Delivery Method [1320] Nasal Cannula Oxygen Delivery Method [1310] Nasal Cannula Oxygen Delivery Method [1300] Nasal Cannula Oxygen Delivery Method [1251] Nasal Cannula Oxygen Delivery Method [1243] Nasal Cannula Oxygen Delivery Method [1230] Nasal Cannula Oxygen Delivery Method Room Air Weight: 92.1 kg Body Mass Index (BMI) 33.7 Intake & Output: Intake and Output for Last 24 Hours 01/09/22 01/10/22 01/11/22 23:59 23:59 23:59 Intake Total 1350 / 1350 Output Total 1300 / 1300 Balance 50 / 50 Lab / Micro Data Result Diagrams: 01/11/22 08:41 01/11/22 04:45 Labs: Laboratory Results - last 24 hr 01/10/22 16:10: WBC 7.1, RBC 5.20, Hgb 15.5 H, Hct 48.3 H, MCV 92.9, MCH 29.8, MCHC 32.1, RDW Std Deviation 49.1 H, RDW Coeff of Melia 14.3, Plt Count 276, MPV 10.0, Immature Gran % (Auto) 0.100, Neut % (Auto) 60.9, Lymph % (Auto) 29.3, Jasper % (Auto) 7.8, Eos % (Auto) 1.3, Baso % (Auto) 0.6, Absolute Neuts (auto) 4.3, Absolute Lymphs (auto) 2.07, Nucleated RBC % 0 01/10/22 16:10: Sodium 140, Potassium 4.3, Chloride 107, Carbon Dioxide 30.0, Anion Gap 3 L, BUN 9, Creatinine 0.80, Estim Creat Clear Calc 66.45, Est GFR (MDRD) Af Amer 93, Est GFR (MDRD) Non-Af 77, BUN/Creatinine Ratio 11.2, Glucose 90, Calcium 8.6 01/10/22 16:10: B-Natriuretic Peptide 39.5 01/10/22 16:10: Troponin I High Sens 4 01/10/22 20:53: COVID-19 ([facility]ONNA) Not Detected 01/10/22 21:25: Procalcitonin < 0.20 H 01/10/22 23:05: MRSA (PCR) Negative 01/11/22 04:45: WBC 5.6, RBC 4.63, Hgb 14.1, Hct 43.4, MCV 93.7, MCH 30.5, MCHC 32.5, RDW Std Deviation 48.0 H, RDW Coeff of Melia 14.1, Plt Count 211, MPV 10.1, Immature Gran % (Auto) 0.000, Neut % (Auto) 61.8, Lymph % (Auto) 26.3, Jasper % (Auto) 10.0, Eos % (Auto) 1.4, Baso % (Auto) 0.5, Absolute Neuts (auto) 3.4, Absolute Lymphs (auto) 1.47, Nucleated RBC % 0 01/11/22 04:45: Sodium 139, Potassium 4.3, Chloride 104, Carbon Dioxide 31.0, Anion Gap 4 L, BUN 9, Creatinine 0.64, Estim Creat Clear Calc 83.06, Est GFR (MDRD) Af Amer 122, Est GFR (MDRD) Non-Af 101, BUN/Creatinine Ratio 14.2, Glucose 85, Calcium 8.0 L, Total Bilirubin 0.50, AST 19, ALT 26, Alkaline Phosphatase 147 H, Total Protein 6.1 L, Albumin 2.5 L, Globulin 3.6, Albumin/Globulin Ratio 0.7 L 01/11/22 04:45: Lactate Dehydrogenase 297 H 01/11/22 08:41: PT 13.8, INR 1.1, APTT 30.5 01/11/22 08:41: Plt Count 231 01/11/22 12:44: Fluid Glucose 101 H, Fluid Total Protein 4.4, Fluid LDH 614 01/11/22 12:44: Fluid Source PLEURAL FLUID, Fluid Color YELLOW, Fluid Appearance CLEAR, Fluid WBC 0.749, Fluid RBC 2, Fluid Tot Cell Count 0.955 H, Fld Polynuclear WBCs # 0.012, Fld Polynuclear WBCs % 1.6, Fluid Mononuclear WBCs 0.737, Fld Mononuclear WBCs % 98.4, Fl Pathologist Comment May follow, Fluid Comment 2 SEE COMMENT Micro: Microbiology 01/11/22 01:10 Urine, Clean Catch Legionella Antigen - Final 01/11/22 01:10 Urine, Clean Catch Streptococcus pneumoniae Antigen (M - Final 01/10/22 23:05 Mucosa - Nasopharyngeal Respiratory Panel (PCR) - Final 01/10/22 16:00 Nasal Secretion SARS-CoV-2 Antigen (Rapid) - Final Radiography Diagnostic Testing: Radiology Impression Chest X-Ray 01/10/22 16:39 IMPRESSION: Right-sided effusion with right lower lobe pneumonia. Electronically Signed: Raul Chiu MD at 17:05 EDT , Chest CTA 01/10/22 20:32 IMPRESSION: 1. No evidence of pulmonary embolus. 2. No aortic dissection or aneurysm. 3. Larger right pleural effusion with subsegmental atelectasis. 4. Small soft tissue nodule in the right upper lobe. Fleischner Society Guidelines for low-risk patients recommend follow-up chest CT at 6-12 months. If unchanged consider an additional follow-up CT at 18-24 months. For high-risk patients (smoking history or other known risk factors) initial follow-up chest CT at 6-12 months and if unchanged, 18-24 months. 5. 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 Electronically Signed: Everett Westfall MD at 13:19 EDT , Chest CT 01/11/22 07:10 IMPRESSION: Status post right thoracentesis. 4.5 mm noncalcified nodule in the posterior aspect of the right upper lobe. Persistent infiltrate and airspace disease in the right lower lobe and right middle lobe as well as at the left lung base. Electronically Signed: Everett Westfall MD at 14:06 EDT , Physical Exam Const alert, oriented x3, no apparent distress and well nourished Constitutional Narrative: Obese white female sitting up in bed, appears comfortable at this time and nontoxic however has some intermittent conversational dyspnea HEENT head/scalp atraumatic and moist oral mucous membranes HEENT Narrative: Dentures in place, Mallampati 2-3, no thrush Resp no retractions and no use of accessory muscles Resp Narrative: Markedly diminished right lung field from base to approximately one quarter from the apex, mildly diminished on the left but clear, dullness to percussion, mild tachypnea and intermittent splinting secondary to pleuritic pain with deep breathing Auscultation: Negative for crackles, rales, rhonchi or wheezes Cardio regular rate, regular rhythm, S1 normal heart sound, S2 normal heart sound, no murmurs, no rub, no gallops, no clicks and no JVD GI normal to inspection, nondistended, normoactive bowel sounds, soft to palpation, non-tender and non-distended; Negative for hepatosplenomegaly Extremity no clubbing, cyanosis or edema Neuro oriented x3, moves all extremities and no focal motor deficits Sensorium / Orientation: awake, alert, oriented to person, oriented to place and oriented to time Speech: speech normal Motor Exam: strength 5/5 throughout Psych affect normal Psych Narrative: Very pleasant and appropriately interactive Assessment & Plan Assessment/Plan (1) Hypoxia: (2) Pneumonia: (3) Pleural effusion: (4) Pulmonary nodule: PLAN: Plan Acute hypoxia secondary to large right pleural effusion +/- pneumonia -Patient requiring supplemental oxygen at 3 L but no signs of extremis other than mild tachypnea with a respiratory rate in the 20s -Wean oxygen as able -Thoracentesis performed today and lights criteria are consistent with exudative effusion -1.3 L lisbet-colored removed -BNP is normalized and I suspect this is not heart failure -Fluid cultures are pending -Respiratory panel negative -COVID test negative -Pro-Juve is normal -Strep pneumo and Legionella antigens are negative -Sputum cultures pending however patient's not been able to produce -Follow-up CT of the chest after thoracentesis to rule out underlying malignancy showed only a 4.5 mm noncalcified nodule in the posterior aspect of the right upper lobe and a persistent infiltrate and airspace disease in the right lower lobe and right middle lobe -Continue Levaquin -Consult pulmonary medicine given the fact that this is an exudative effusion--> discussed with Dr. Lindsay Pulmonary nodule -Patient is high risk and with a pulmonary nodule at 4.5 mm she will potentially need a repeat CAT scan in the next 12 months based on Fleischner criteria -Ongoing tobacco abuse History of stroke -Continue home Plavix -Risk factor modification History of frontal lobe AVM -Prior craniotomy -Has been stable -No current issues Hypertension -Continue home metoprolol and Aldactone with hold parameters -Patient states she has issues with people's ability to obtain her blood pressure peripherally and often reads low with normal mentation and no signs of dysfunction related to hypotension Hyperlipidemia -Continue home statin therapy COPD/asthma -Continue scheduled aerosols -As needed albuterol -Incentive spirometry GERD/chronic abdominal pain -Continue PPI -Continue zonisamide Chronic pain -Continue home gabapentin Seasonal allergies -Continue home loratadine Anxiety/depression/PTSD -Continue home Seroquel DVT prophylaxis -Continue Lovenox -Continue SCDs CODE STATUS -Full code is verified on admission - Charges/Coding Visit Charges Inpatient E&M: 81536 Subs Hosp L2
[2022-01-11 15:07] LABS: Lymphocytes 11 %; Other Cell Type/BF 89 %
[2022-01-11] MEDS: Acetaminophen 325 MG Tablet 650 MG PO (22:21)
[2022-01-11] MEDS: levoFLOXacin IV 750 MG/150 ML BAG 100 MG IV (22:21)
[2022-01-11] MEDS: guaiFENesin 10 ML UDC (200MG/10ML) 20 ML PO (22:21)
[2022-01-11] MEDS: QUEtiapine 100 MG Tablet PO (22:22)
[2022-01-12] VITALS (11 sets, daily range): BP systolic 92–104; BP diastolic 43–58; PULSE 74–85; RESP 18–20; TEMP 36.2–36.7; O2SAT 87–96
[2022-01-12] MEDS: Gabapentin 600 MG Tablet PO ×3 (05:22→22:17)
--- NOTE | 2022-01-12 06:42 | EX.PCM.CONCC ---
Assessment & Plan Assessment/Plan (1) Pleural effusion: PLAN: Plan RECOMMENDATIONS: 1. Continue antimicrobials to complete 7 days of therapy. 2. Continue bronchodilators. 3. Wean supplemental oxygen to maintain saturations at or above 90%. 4. Encourage incentive spirometer use and mobilize patient as tolerated. 5. Perform walking oximetry study prior to consideration for discharge home. 6. The patient should follow-up in the pulmonary medicine clinic within 2 weeks of discharge. IMPRESSIONS: 1. Shortness of breath and hypoxia with related pleural effusion Clinical concern for pneumonia with parapneumonic effusion. The patient remains on appropriate antimicrobials. Her breathing quality has significantly improved following thoracentesis. It is reasonable to continue bronchodilator therapy as ordered. Ultimately, the patient needs to follow-up in the pulmonary medicine clinic after discharge. She should be continued on antimicrobials to complete 7 days of therapy. A walking oximetry study should be completed prior to discharge to assess for any exertional hypoxemia. She will require outpatient PFTs to definitively assess for any underlying obstructive lung disease. Pleural fluid cultures and cytology are still pending. Per traditional Light's criteria, if at least one of the following three is fulfilled, the fluid would be considered an exudate: 1. Pleural fluid protein/serum protein ratio greater than 0.5 2. Pleural fluid LDH/serum LDH ratio greater than 0.6 3. Pleural fluid LDH greater than two thirds the upper limits of the laboratories normal serum LDH Based upon my review of the patient's pleural fluid analysis, along with serum LDH and total protein levels, the pleural fluid would be considered exudative in nature. 2. Chronic tobacco dependency I personally spent 3 minutes discussing the deleterious effects of continued tobacco use with the patient, including modalities which could be utilized to achieve a smoke-free lifestyle. The patient reported that she is making lifestyle changes in an attempt to cut back on smoking. Nicotine replacement therapy can be offered to her while admitted to the hospital. Ultimately, as noted above, the patient needs to have baseline PFTs completed on an outpatient basis. 3. Pulmonary nodule The patient was noted to have a subcentimeter pulmonary nodule on her recent CT chest. In light of her age and tobacco abuse history, at a minimum, the patient would be a candidate for yearly surveillance screening. 4. History of hypertension/hyperlipidemia/GERD/obesity Complicates care, management, recovery and prognosis. Continue home medications as indicated. This note was generated with Dragon dictation software. It may contain incorrect words, spelling, and punctuation that were not noted in checking the note before signing. HPI Consult Data Date of Consult: 01/12/22 HPI Narrative Reason for Consultation: Pleural effusion HPI Narrative: The patient is a 61-year-old female, with a history as outlined below, who presented to the emergency department on January 10 with progressive dyspnea, nonproductive cough and hypoxemia. The patient endorses an approximate [id number] smoking history, but has cut back to smoking 0.5 packs of cigarettes per day. She does not regularly utilize supplemental oxygen at her baseline. She has never been formally evaluated by a sanitarian aide, nor has she ever completed pulmonary function studies. She does report having been diagnosed previously with asthma. She currently has access to an albuterol rescue inhaler in her home environment. On presentation to the emergency department, the patient was noted to be afebrile and hemodynamically stable. Initial laboratory evaluation revealed no evidence of a leukocytosis. Coagulation profile was within normal limits. Chemistry profile was unrevealing. Troponin and BNP are within normal limits. COVID and MRSA screen were negative. A CTA chest was obtained and demonstrated no evidence for a pulmonary embolism. However, there was a large right pleural effusion along with a subcentimeter nodule in the right upper lobe. The patient underwent ultrasound-guided thoracentesis on January 11 with 1.3 L of lisbet-colored fluid removed from the right hemithorax. A follow-up chest CT was then completed postthoracentesis and revealed evidence of airspace disease in the right middle lobe and right lower lobe with associated air bronchograms. The patient is currently being maintained on Levaquin. [facility] Medical History Adrenal tumor Anxiety and depression AVM (arteriovenous malformation) brain COPD with asthma GERD (gastroesophageal reflux disease) History of CVA (cerebrovascular accident) HLD (hyperlipidemia) HTN (hypertension) Obesity PTSD (post-traumatic stress disorder) Tobacco use Home Medications atorvastatin 80 mg tablet 80 mg PO DAILY cholesterol 01/10/22 [History Last Taken 01/10/22] clopidogrel 75 mg tablet 75 mg PO DAILY clot prevention 01/10/22 [History Last Taken 01/10/22] dicyclomine 10 mg capsule 10 mg PO DAILY stomach 01/10/22 [History Last Taken 01/10/22] gabapentin 600 mg tablet 600 mg PO TID pain 01/10/22 [History Last Taken 01/10/22] loratadine 10 mg tablet 10 mg PO DAILY allergies 01/10/22 [History Last Taken 01/10/22] metoprolol succinate 50 mg capsule sprinkle, ext. release 24 hr 50 mg PO DAILY blood pressure 01/10/22 [History Last Taken 01/10/22] pantoprazole 40 mg tablet,delayed release 40 mg PO DAILY GERD 01/10/22 [History Last Taken 01/10/22] quetiapine 100 mg tablet (Seroquel) 100 mg PO QHS sleep 01/10/22 [History Last Taken 01/09/22] spironolactone 100 mg tablet 100 mg PO DAILY diuretic 01/10/22 [History Last Taken 01/10/22] zonisamide 50 mg capsule 50 mg PO DAILY stomach 01/10/22 [History Last Taken 01/10/22] Allergy/AdvReac Type Severity Reaction Status Date / Time aspirin Allergy Other Verified 01/10/22 15:11 Penicillins Allergy Angioedema Verified 01/10/22 15:11 acetaminophen [From [place]] AdvReac Other Verified 01/10/22 15:11 hydrocodone [From [place]] AdvReac Other Verified 01/10/22 15:11 Family History (Updated 01/10/22 @ 19:[address] Mana Juarez MD) Mother Thyroid disorder Cancer Lung CA with tobacco use history. Father Cerebral hemorrhage in his youth in the secondary to trauma, reported cerebral hemorrhage as one trauma but had additional injuries as well. Surgical History H/O brain surgery H/O right knee surgery History of appendectomy History of hysterectomy Social History (Updated 01/10/22 @ 19:[address] Mana Juarez MD) household members: spouse Smoking Status: Current every day smoker tobacco type: cigarettes Smoking packs per day: 1 Smoking cigarettes per day: 20.0 Years smoked: 50 Smoking pack-years: 50.00 alcohol intake: current alcohol intake frequency: holidays/special occasions only substance use type: does not use ROS Constitutional Constitutional: Denies body ache(s), chills or fever(s) Eyes Eyes: Denies blurry vision or change in vision ENT HEENT: Denies dizziness, dysphagia, epistaxis or headache(s) Cardiovascular Cardiovascular: Reports dyspnea; Denies chest pain or dizziness Respiratory/Chest Respiratory/Chest: Reports cough and dyspnea Gastrointestinal Gastrointestinal: Denies abdominal pain, diarrhea, nausea or vomiting Genitourinary Genitourinary: Denies difficulty urinating Musculoskeletal Musculoskeletal: Denies arthralgias Integumentary Integumentary: Denies lesions, rash or skin ulcer Neurologic Neurologic: Denies abnormal gait or abnormal speech Psychiatric Psychiatric: Denies anxiety or depression Endocrine Endocrinology: Denies fatigue or polydipsia Hematologic/Lymphatic Hematologic/Lymphatic: Denies easy bleeding or easy bruising Physical Exam Const alert and no apparent distress General Appearance: cooperative Nutritional Appearance: obese HEENT normocephalic, head/scalp atraumatic and moist oral mucous membranes Eyes PERRL, EOMs intact bilaterally and conjunctivae normal Neck supple General: trachea midline Chest inspection of chest normal Resp normal respiratory effort Auscultation: rales bilateral base and diminished lung sounds Cardio regular rate and regular rhythm GI normal to inspection, nondistended, normoactive bowel sounds Extremity no clubbing, cyanosis or edema Skin no rashes or lesions noted Neuro CN's II-XII intact bilaterally, moves all extremities and no focal motor deficits Psych cooperative and affect normal Lab / Micro Data Result Diagrams: 01/12/22 06:05 01/12/22 06:05 Labs: Laboratory Results - last 24 hr 01/11/22 04:45: Sodium 139, Potassium 4.3, Chloride 104, Carbon Dioxide 31.0, Anion Gap 4 L, BUN 9, Creatinine 0.64, Estim Creat Clear Calc 83.06, Est GFR (MDRD) Af Amer 122, Est GFR (MDRD) Non-Af 101, BUN/Creatinine Ratio 14.2, Glucose 85, Calcium 8.0 L, Total Bilirubin 0.50, AST 19, ALT 26, Alkaline Phosphatase 147 H, Total Protein 6.1 L, Albumin 2.5 L, Globulin 3.6, Albumin/Globulin Ratio 0.7 L 01/11/22 04:45: Lactate Dehydrogenase 297 H 01/11/22 08:41: PT 13.8, INR 1.1, APTT 30.5 01/11/22 08:41: Plt Count 231 01/11/22 12:44: Fluid Glucose 101 H, Fluid Total Protein 4.4, Fluid LDH 614 01/11/22 12:44: Fluid Source PLEURAL FLUID, Fluid Color YELLOW, Fluid Appearance CLEAR, Fluid WBC 0.749, Fluid RBC 2, Fluid Tot Cell Count 0.955 H, Fld Polynuclear WBCs # 0.012, Fld Polynuclear WBCs % 1.6, Fluid Mononuclear WBCs 0.737, Fld Mononuclear WBCs % 98.4, Fluid Lymphocytes 11, Fluid Other Cells 89, Fl Pathologist Comment May follow, Fluid Comment 2 SEE COMMENT Micro: Microbiology 01/11/22 12:44 Fluid - Thoracentesis Fluid Gram Stain - Final 01/11/22 01:10 Urine, Clean Catch Legionella Antigen - Final 01/11/22 01:10 Urine, Clean Catch Streptococcus pneumoniae Antigen (M - Final 01/10/22 23:05 Mucosa - Nasopharyngeal Respiratory Panel (PCR) - Final Radiology Impression Thoracentesis Ultrasound 01/11/22 07:07 IMPRESSION: Ultrasound-guided right thoracentesis. Electronically Signed: Everett Westfall MD at 13:19 EDT , Chest CT 01/11/22 07:10 IMPRESSION: Status post right thoracentesis. 4.5 mm noncalcified nodule in the posterior aspect of the right upper lobe. Persistent infiltrate and airspace disease in the right lower lobe and right middle lobe as well as at the left lung base. Electronically Signed: Everett Westfall MD at 14:06 EDT , Charges/Coding Visit Charges Inpatient E&M: 23209 Init Hosp L3 Behavior Interventions Behavior Intervention: 26107 Smoking Cessation 3-10 min
[2022-01-12] MEDS: Ipratropium/Albuterol Sulfate 3 ML AMPUL.NEB INHALATION ×4 (06:55→19:57)
[2022-01-12 07:13] LABS: Absolute Lymphocyte Count 1.37 X10^3/uL (0.83-4.51); Absolute Neutrophil Count 3.1 X10^3/uL (2.0-7.7); Basophil# 0.03 X10^3/uL; Basophil% 0.6 % (0-1); Eosinophil# 0.07 X10^3/uL; Eosinophils% 1.4 % (0-5); Hematocrit 43.8 % (37-47); Hemoglobin 14.2 g/dL (12.0-15.0); Lymphocyte # 1.37 X10^3/ul (0.83-4.51); Lymphocyte % 27.2 % (19-41); Mean Corp Hgb Conc 32.4 g/dL (32-36); Mean Corpuscular Volume 92.4 fL (81-99); Mean Platelet Vol. 10.2 fl (6.2-12.0); Monocyte# 0.46 X10^3/uL; Monocyte% 9.1 % (0-10); NRBC Flagged by Analyzer 0 % (0-5); Neutrophil % 61.7 % (47-70); Platelet Count 218 K/mm3 (150-450); RBC Distribution Width CV 13.8 % (11.6-14.6); RBC Distribution Width SD 47.2 fl (35.1-43.9); Red Blood Count 4.74 M/mm3 (4.2-5.4)
[2022-01-12 07:42] LABS: Anion Gap 7 (5-15); BUN 10 mg/dL (7-18); BUN/Creat Ratio 13.2 RATIO (10-20); Calcium,Total 8.4 mg/dL (8.5-10.1); Chloride 104 mmol/L (98-107); Creatinine, Serum 0.76 mg/dL (0.55-1.02); EST Glomerular Filtration Rate 82 mL/min (>60); Est Glom Filt Rate - Afr Amer 99 mL/min (>60); Estimated Creatinine Clearance 69.95 ml/min; Glucose 102 mg/dL (74-106); Sodium Level 139 mmol/L (136-145)
[2022-01-12] MEDS: Pantoprazole Sodium 40 MG Tablet PO (08:33)
[2022-01-12] MEDS: Loratadine 10 MG Tablet PO (08:34)
[2022-01-12] MEDS: Enoxaparin 40 MG/0.4 ML Syringe SC (08:34)
[2022-01-12] MEDS: Clopidogrel Bisulfate 75 MG Tablet PO (08:34)
[2022-01-12] MEDS: Dicyclomine 10 MG Capsule PO (08:34)
[2022-01-12] MEDS: Spironolactone 50 MG Tablet 100 MG PO (08:34)
[2022-01-12] MEDS: Zonisamide 50 MG Capsule PO (08:34)
--- NOTE | 2022-01-12 13:14 | PN.HOSP_ITS ---
Subjective Subjective Patient reports that she is feeling better today since her thoracentesis. She was able to be weaned to room air at rest without any difficulty after her fluid removal yesterday. 1.3 L were removed. Pleuritic pain has improved drastically. Patient still with intermittent cough but not able to produce a sputum for culture as of yet. Objective Data Objective Data Vital Signs: Vital Signs Temp Pulse Resp BP Pulse Ox O2 Del Method O2 Flow Rate 98.1 F 78 20 H 99/54 L 94 Room Air 2 01/12/22 10:35 01/12/22 10:56 01/12/22 10:56 01/12/22 10:35 01/12/22 10:35 01/12/22 10:35 01/12/22 10:20 Oxygen Flow Rate (L/min) [1320 3 ] Oxygen Flow Rate (L/min) [1310 3 ] Oxygen Flow Rate (L/min) [1300 3 ] Oxygen Flow Rate (L/min) [1251 3 ] Oxygen Flow Rate (L/min) [1243 3 ] Oxygen Flow Rate (L/min) [1230 3 ] Oxygen Flow Rate (L/min) [ 3 AMBULATING with Oxygen #3] Oxygen Flow Rate (L/min) [ 2 AMBULATING with Oxygen #1] Oxygen Flow Rate (L/min) 2 Oxygen Delivery Method [1320] Nasal Cannula Oxygen Delivery Method [1310] Nasal Cannula Oxygen Delivery Method [1300] Nasal Cannula Oxygen Delivery Method [1251] Nasal Cannula Oxygen Delivery Method [1243] Nasal Cannula Oxygen Delivery Method [1230] Nasal Cannula Oxygen Delivery Method Room Air Weight: 91.9 kg Body Mass Index (BMI) 33.7 Intake & Output: Intake and Output for Last 24 Hours 01/10/22 01/11/22 01/12/22 23:59 23:59 23:59 Intake Total 1856 / 1856 950 / 950 Output Total 1300 / 1300 Balance 556 / 556 950 / 950 Lab / Micro Data Result Diagrams: 01/12/22 06:05 01/12/22 06:05 Labs: Laboratory Results - last 24 hr 01/11/22 12:44: Fluid Glucose 101 H, Fluid Total Protein 4.4, Fluid LDH 614 01/11/22 12:44: Fluid Source PLEURAL FLUID, Fluid Color YELLOW, Fluid Appearance CLEAR, Fluid WBC 0.749, Fluid RBC 2, Fluid Tot Cell Count 0.955 H, Fld Polynuclear WBCs # 0.012, Fld Polynuclear WBCs % 1.6, Fluid Mononuclear WBCs 0.737, Fld Mononuclear WBCs % 98.4, Fluid Lymphocytes 11, Fluid Other Cells 89, Fl Pathologist Comment May follow, Fluid Comment 2 SEE COMMENT 01/12/22 06:05: WBC 5.0, RBC 4.74, Hgb 14.2, Hct 43.8, MCV 92.4, MCH 30.0, MCHC 32.4, RDW Std Deviation 47.2 H, RDW Coeff of Melia 13.8, Plt Count 218, MPV 10.2, Immature Gran % (Auto) 0.000, Neut % (Auto) 61.7, Lymph % (Auto) 27.2, Coryell % (Auto) 9.1, Eos % (Auto) 1.4, Baso % (Auto) 0.6, Absolute Neuts (auto) 3.1, Absolute Lymphs (auto) 1.37, Nucleated RBC % 0 01/12/22 06:05: Sodium 139, Potassium 4.0, Chloride 104, Carbon Dioxide 28.0, Anion Gap 7, BUN 10, Creatinine 0.76, Estim Creat Clear Calc 69.95, Est GFR (MDRD) Af Amer 99, Est GFR (MDRD) Non-Af 82, BUN/Creatinine Ratio 13.2, Glucose 102, Calcium 8.4 L Micro: Microbiology 01/11/22 12:44 Fluid - Thoracentesis Fluid Gram Stain - Final 01/11/22 01:10 Urine, Clean Catch Legionella Antigen - Final 01/11/22 01:10 Urine, Clean Catch Streptococcus pneumoniae Antigen (M - Final 01/10/22 23:05 Mucosa - Nasopharyngeal Respiratory Panel (PCR) - Final 01/10/22 16:00 Nasal Secretion SARS-CoV-2 Antigen (Rapid) - Final Radiography Diagnostic Testing: Radiology Impression Thoracentesis Ultrasound 01/11/22 07:07 IMPRESSION: Ultrasound-guided right thoracentesis. Electronically Signed: Eveertt Westfall MD at 13:19 EDT , Chest CT 01/11/22 07:10 IMPRESSION: Status post right thoracentesis. 4.5 mm noncalcified nodule in the posterior aspect of the right upper lobe. Persistent infiltrate and airspace disease in the right lower lobe and right middle lobe as well as at the left lung base. Electronically Signed: Everett Westfall MD at 14:06 EDT , Physical Exam Const alert, oriented x3, no apparent distress and well nourished Constitutional Narrative: Obese white female sitting up in bed, appears comfortable, nontoxic, pulmonary medicine is at the bedside as well, no conversational dyspnea noted today HEENT head/scalp atraumatic and moist oral mucous membranes HEENT Narrative: Mallampati 3, no thrush Resp normal respiratory effort, no retractions and no use of accessory muscles Resp Narrative: Diminished with few crackles right base but much improved air movement throughout the entire lung field on the right, slightly diminished but clear on the left, mild tachypnea but no conversational dyspnea Auscultation: Negative for crackles, rales, rhonchi or wheezes Cardio regular rate, regular rhythm, S1 normal heart sound, S2 normal heart sound, no murmurs, no rub, no gallops, no clicks and no JVD GI normal to inspection, nondistended, normoactive bowel sounds, soft to palpation, non-tender and non-distended; Negative for hepatosplenomegaly Extremity no clubbing, cyanosis or edema Neuro oriented x3, moves all extremities and no focal motor deficits Sensorium / Orientation: awake, alert, oriented to person, oriented to place and oriented to time Psych affect normal Psych Narrative: Very pleasant and appropriately interactive Assessment & Plan Assessment/Plan (1) Hypoxia: (2) Pneumonia: (3) Pleural effusion: (4) Pulmonary nodule: PLAN: Plan Acute hypoxia secondary to large right pleural effusion +/- pneumonia -Patient down to room air at rest but requires 3 L with ambulation at this time -Thoracentesis performed 01/11/2022 and lights criteria are consistent with exudative effusion -1.3 L lisbet-colored removed -Fluid cultures remain pending -Respiratory panel negative -COVID test negative -Pro-Juve is normal -Strep pneumo and Legionella antigens negative -Sputum cultures ordered however patient's not been able to produce -Follow-up CT of the chest after thoracentesis to rule out underlying malignancy showed only a 4.5 mm noncalcified nodule in the posterior aspect of the right upper lobe and a persistent infiltrate and airspace disease in the right lower lobe and right middle lobe -Continue Levaquin day 2 of 7 -Will check ambulatory pulse ox today and again on the day of discharge -Pulmonary medicine following-appreciate input -We will arrange for outpatient follow-up 2 weeks after discharge on the day of discharge Exudative effusion -Suspect parapneumonic however work-up in progress -Gram stain shows no organisms and very rare white blood cells -As noted per light's criteria effusion is exudative Pulmonary nodule -Patient is high risk and with a pulmonary nodule at 4.5 mm she will potentially need a repeat CAT scan in the next 12 months based on Fleischner criteria -Ongoing tobacco abuse History of stroke -Continue home Plavix -Risk factor modification History of frontal lobe AVM -Prior craniotomy -Has been stable -No current issues Hypertension -Continue home metoprolol and Aldactone with hold parameters -Patient states she has issues with people's ability to obtain her blood pressure peripherally and often reads low with normal mentation and no signs of dysfunction related to hypotension Hyperlipidemia -Continue home statin therapy COPD/asthma -Continue scheduled aerosols -As needed albuterol -Incentive spirometry GERD/chronic abdominal pain -Continue PPI -Continue zonisamide Chronic pain -Continue home gabapentin Seasonal allergies -Continue home loratadine Anxiety/depression/PTSD -Continue home Seroquel Tobacco abuse -Patient states she smoking 2 to 10 cigarettes a day -Strongly encourage cessation and repeated conversation today with regards to cessation -Patient states she is trying to quit DVT prophylaxis -Continue Lovenox -Continue SCDs CODE STATUS -Full code is verified on admission - Charges/Coding Visit Charges Inpatient E&M: 92479 Subs Hosp L2
--- NOTE | 2022-01-12 13:22 | RAD_ITS ---
STUDY: X-RAY CHEST REASON FOR EXAM: Female, 61 years old. Hypoxia. Right lower lobe pneumonia. TECHNIQUE: Single AP portable view of the chest. COMPARISON: Comparison is made with prior study dated 01/10/2022. FINDINGS: Small right pleural effusion with right basilar infiltrate. This has progressed as compared to prior study. Increased markings at the left lung base as well. This has progressed as compared to prior study. Normal size heart. Normal mediastinum and antelmo. Normal visualized pulmonary arteries. There is atherosclerotic calcification of the aortic arch with tortuosity. There are diffuse degenerative changes of the visualized thoracic spine. Normal visualized ribs, clavicles, and shoulders. There is no demonstrated abnormality of the visualized soft tissue structures of the upper abdomen. RAD/Chest 1 View (Portable) IMPRESSION: Progressive bibasilar infiltrates worse on the right side with small right pleural effusion. Electronically Signed: Everett Westfall MD at 13:45 EDT ,
[2022-01-12] MEDS: Acetaminophen 325 MG Tablet 650 MG PO (20:30)
[2022-01-12] MEDS: guaiFENesin 10 ML UDC (200MG/10ML) 20 ML PO (20:30)
[2022-01-12] MEDS: MELATONIN 3 MG TABLET PO (22:17)
[2022-01-12] MEDS: QUEtiapine 100 MG Tablet PO (22:17)
[2022-01-12] MEDS: levoFLOXacin IV 750 MG/150 ML BAG 100 MG IV (22:17)
[2022-01-13 02:46] VITALS: BP 109/66; PULSE 92; RESP 18; TEMP 36.5; O2SAT 92
[2022-01-13] MEDS: Gabapentin 600 MG Tablet PO (05:39)
--- NOTE | 2022-01-13 06:00 | RAD_ITS ---
STUDY: X-RAY CHEST REASON FOR EXAM: Female, 61 years old. Pleural effusion. TECHNIQUE: Single AP portable view of the chest. COMPARISON: Comparison is made with prior study dated 01/12/2022. FINDINGS: Since prior study, there is been mild progression of the pleural parenchymal changes at the right lung base. Stable left basilar infiltrate and/or atelectasis. Normal size heart. Normal mediastinum and antelmo. Normal visualized pulmonary arteries. There is atherosclerotic calcification of the aortic arch with tortuosity. Normal visualized thoracic spine. Normal visualized ribs, clavicles, and shoulders. There is no demonstrated abnormality of the visualized soft tissue structures of the upper abdomen. RAD/Chest 1 View (Portable) IMPRESSION: There is been mild progression of the pleural parenchymal changes at the right lung base. Stable increased markings at the left lung base. Electronically Signed: Everett Westfall MD at 8:21 EDT ,
[2022-01-13 07:05] VITALS: PULSE 77; RESP 20; O2SAT 93
[2022-01-13] MEDS: Ipratropium/Albuterol Sulfate 3 ML AMPUL.NEB INHALATION (07:05)
[2022-01-13 08:03] VITALS: BP 94/66; PULSE 79; RESP 18; TEMP 36.5; O2SAT 94
--- NOTE | 2022-01-13 09:35 | PN.CC_ITS ---
Assessment & Plan Assessment/Plan (1) Pleural effusion: PLAN: Plan RECOMMENDATIONS: 1. Continue antimicrobials to complete 7 days of therapy. 2. Continue bronchodilators. 3. Encourage incentive spirometer use and mobilize patient as tolerated. 4. Perform walking oximetry study prior to consideration for discharge home. 5. The patient should follow-up in the pulmonary medicine clinic within 2 weeks of discharge. IMPRESSIONS: 1. Shortness of breath and hypoxia with related pleural effusion Clinical concern for pneumonia with parapneumonic effusion. The patient remains on appropriate antimicrobials. Her breathing quality has significantly improved following thoracentesis. It is reasonable to continue bronchodilator therapy as ordered. Ultimately, the patient needs to follow-up in the pulmonary medicine clinic after discharge. She should be continued on antimicrobials to complete 7 days of therapy. A walking oximetry study should be completed prior to discharge to assess for any exertional hypoxemia. She will require outpatient PFTs to definitively assess for any underlying obstructive lung disease. Pleu ral fluid cultures and cytology are still pending. Per traditional Light's criteria, if at least one of the following three is fulfilled, the fluid would be considered an exudate: 1. Pleural fluid protein/serum protein ratio greater than 0.5 2. Pleural fluid LDH/serum LDH ratio greater than 0.6 3. Pleural fluid LDH greater than two thirds the upper limits of the laboratories normal serum LDH Based upon my review of the patient's pleural fluid analysis, along with serum LDH and total protein levels, the pleural fluid would be considered exudative in nature. 2. Chronic tobacco dependency Tobacco cessation counseling was provided. The patient reported that she is making lifestyle changes in an attempt to cut back on smoking. Nicotine replacement therapy can be offered to her while admitted to the hospital. Ultimately, as noted above, the patient needs to have baseline PFTs completed on an outpatient basis. 3. Pulmonary nodule The patient was noted to have a subcentimeter pulmonary nodule on her recent CT chest. In light of her age and tobacco abuse history, at a minimum, the patient would be a candidate for yearly surveillance screening. 4. History of hypertension/hyperlipidemia/GERD/obesity Complicates care, management, recovery and prognosis. Continue home medications as indicated. This note was generated with [employer] software. It may contain incorrect words, spelling, and punctuation that were not noted in checking the note before signing. Subjective Subjective The patient was seen and examined at the bedside this morning. Events from the last 24 hours have been reviewed. The patient is currently afebrile, hemodynamically stable and maintaining appropriate oxygen saturations on room air. The patient remains on appropriate antimicrobials and bronchodilators therapy. Objective Data Objective Data The patient's most recent lab work, culture data and imaging studies have all been personally reviewed. Pleural fluid cultures are pending. Vital Signs: Vital Signs Temp Pulse Resp BP Pulse Ox O2 Del Method O2 Flow Rate 97.7 F L 79 18 94/66 94 Room Air 2 01/13/22 08:03 01/13/22 08:03 01/13/22 08:03 01/13/22 08:03 01/13/22 08:03 01/13/22 08:04 01/12/22 10:20 Oxygen Flow Rate (L/min) [1320 3 ] Oxygen Flow Rate (L/min) [1310 3 ] Oxygen Flow Rate (L/min) [1300 3 ] Oxygen Flow Rate (L/min) [1251 3 ] Oxygen Flow Rate (L/min) [1243 3 ] Oxygen Flow Rate (L/min) [1230 3 ] Oxygen Flow Rate (L/min) [ 3 AMBULATING with Oxygen #3] Oxygen Flow Rate (L/min) [ 2 AMBULATING with Oxygen #1] Oxygen Flow Rate (L/min) 2 Oxygen Delivery Method [1320] Nasal Cannula Oxygen Delivery Method [1310] Nasal Cannula Oxygen Delivery Method [1300] Nasal Cannula Oxygen Delivery Method [1251] Nasal Cannula Oxygen Delivery Method [1243] Nasal Cannula Oxygen Delivery Method [1230] Nasal Cannula Oxygen Delivery Method Room Air Weight: 196 lb 13.965 oz Body Mass Index (BMI) 33.7 Intake & Output: Intake and Output for Last 24 Hours 01/11/22 01/12/22 01/13/22 23:59 23:59 23:59 Intake Total 1856 / 1856 1600 / 1600 300 / 300 Output Total 1300 / 1300 Balance 556 / 556 1600 / 1600 300 / 300 Lab / Micro Data Attestation: I reviewed the patient's lab results. Result Diagrams: 01/12/22 06:05 01/12/22 06:05 Micro: Microbiology 01/11/22 12:44 Fluid - Thoracentesis Fluid Gram Stain - Final 01/11/22 01:10 Urine, Clean Catch Legionella Antigen - Final 01/11/22 01:10 Urine, Clean Catch Streptococcus pneumoniae Antigen (M - Final 01/10/22 23:05 Mucosa - Nasopharyngeal Respiratory Panel (PCR) - Final 01/10/22 16:00 Nasal Secretion SARS-CoV-2 Antigen (Rapid) - Final Radiography Diagnostic Testing: Radiology Impression Chest CT 01/11/22 07:10 IMPRESSION: Status post right thoracentesis. 4.5 mm noncalcified nodule in the posterior aspect of the right upper lobe. Persistent infiltrate and airspace disease in the right lower lobe and right middle lobe as well as at the left lung base. Electronically Signed: Everett Westfall MD at 14:06 EDT , ADDENDUM: 01/12/22 1359 IMPRESSION: undefined Chest X-Ray 01/12/22 13:22 IMPRESSION: Progressive bibasilar infiltrates worse on the right side with small right pleural effusion. Electronically Signed: Everett Westfall MD at 13:45 EDT , Chest X-Ray 01/13/22 06:00 IMPRESSION: There is been mild progression of the pleural parenchymal changes at the right lung base. Stable increased markings at the left lung base. Electronically Signed: Everett Westfall MD at 8:21 EDT , Physical Exam Const alert and no apparent distress General Appearance: cooperative Nutritional Appearance: obese HEENT normocephalic, head/scalp atraumatic and moist oral mucous membranes Eyes PERRL, EOMs intact bilaterally and conjunctivae normal Neck supple General: trachea midline Chest inspection of chest normal Resp normal respiratory effort Auscultation: rales bilateral base and diminished lung sounds Cardio regular rate and regular rhythm GI normal to inspection, nondistended, normoactive bowel sounds Extremity no clubbing, cyanosis or edema Skin no rashes or lesions noted Neuro CN's II-XII intact bilaterally, moves all extremities and no focal motor deficits Psych cooperative and affect normal Charges/Coding Visit Charges Inpatient E&M: 44328 Subs Hosp L2
[2022-01-13 10:14] VITALS: PULSE 79
[2022-01-13] MEDS: Atorvastatin Calcium 80 MG Tablet PO (10:14)
[2022-01-13] MEDS: Spironolactone 50 MG Tablet 100 MG PO (10:14)
[2022-01-13] MEDS: Clopidogrel Bisulfate 75 MG Tablet PO (10:14)
[2022-01-13] MEDS: Dicyclomine 10 MG Capsule PO (10:14)
[2022-01-13] MEDS: Pantoprazole Sodium 40 MG Tablet PO (10:14)
[2022-01-13] MEDS: Enoxaparin 40 MG/0.4 ML Syringe SC (10:14)
[2022-01-13] MEDS: Zonisamide 50 MG Capsule PO (10:14)
[2022-01-13] MEDS: Loratadine 10 MG Tablet PO (10:14)
[2022-01-13 10:22] VITALS: O2SAT 91; O2SAT 93
--- NOTE | 2022-01-13 10:23 | PCM.DC.SUM ---
Providers Date of Admission: 01/10/22 Date of Discharge: 01/13/22 Primary Care Physician: Dr. Sawyer Bacon MD Consultations 01/11/22 14:36 Consult: Pump Installation And Servicer / Pulmonary Medicine Routine Consulting Provider: Pulmonary Medicine drew Araiza Reason for Consult: Exudative effusion EMERGENT Consult: No MD Notified: Yes Date Notified: 01/11/22 Time Notified: 14:37 Method of Notification: Verbal Reason For Visit: HYPOXIA,RLL PNA, PLEURAL EFFUSION Diagnosis Discharge Diagnosis (1) Pleural effusion: Status: Acute Code(s): J90 - Pleural effusion, not elsewhere classified Plan Acute hypoxia secondary to large right pleural effusion +/- pneumonia -Patient down to room air at rest but requires 3 L with ambulation at this time -Thoracentesis performed 01/11/2022 and lights criteria are consistent with exudative effusion -1.3 L lisbet-colored removed -Fluid cultures remain pending -Respiratory panel negative -COVID test negative -Pro-Juve is normal -Strep pneumo and Legionella antigens negative -Sputum cultures ordered however patient's not been able to produce -Follow-up CT of the chest after thoracentesis to rule out underlying malignancy showed only a 4.5 mm noncalcified nodule in the posterior aspect of the right upper lobe and a persistent infiltrate and airspace disease in the right lower lobe and right middle lobe -Continue Levaquin day 2 of 7 -Will check ambulatory pulse ox today and again on the day of discharge -Pulmonary medicine following-appreciate input -We will arrange for outpatient follow-up 2 weeks after discharge on the day of discharge Exudative effusion -Suspect parapneumonic however work-up in progress -Gram stain shows no organisms and very rare white blood cells -As noted per light's criteria effusion is exudative Pulmonary nodule -Patient is high risk and with a pulmonary nodule at 4.5 mm she will potentially need a repeat CAT scan in the next 12 months based on Fleischner criteria -Ongoing tobacco abuse History of stroke -Continue home Plavix -Risk factor modification History of frontal lobe AVM -Prior craniotomy -Has been stable -No current issues Hypertension -Continue home metoprolol and Aldactone with hold parameters -Patient states she has issues with people's ability to obtain her blood pressure peripherally and often reads low with normal mentation and no signs of dysfunction related to hypotension Hyperlipidemia -Continue home statin therapy COPD/asthma -Continue scheduled aerosols -As needed albuterol -Incentive spirometry GERD/chronic abdominal pain -Continue PPI -Continue zonisamide Chronic pain -Continue home gabapentin Seasonal allergies -Continue home loratadine Anxiety/depression/PTSD -Continue home Seroquel Tobacco abuse -Patient states she smoking 2 to 10 cigarettes a day -Strongly encourage cessation and repeated conversation today with regards to cessation -Patient states she is trying to quit DVT prophylaxis -Continue Lovenox -Continue SCDs CODE STATUS -Full code is verified on admission - Medications at Discharge Home Medications atorvastatin 80 mg tablet 80 mg PO DAILY cholesterol 01/10/22 clopidogrel 75 mg tablet 75 mg PO DAILY clot prevention 01/10/22 dicyclomine 10 mg capsule 10 mg PO DAILY stomach 01/10/22 gabapentin 600 mg tablet 600 mg PO TID pain 01/10/22 loratadine 10 mg tablet 10 mg PO DAILY allergies 01/10/22 metoprolol succinate 50 mg capsule sprinkle, ext. release 24 hr 50 mg PO DAILY blood pressure 01/10/22 pantoprazole 40 mg tablet,delayed release 40 mg PO DAILY GERD 01/10/22 quetiapine 100 mg tablet (Seroquel) 100 mg PO QHS sleep 01/10/22 spironolactone 100 mg tablet 100 mg PO DAILY diuretic 01/10/22 zonisamide 50 mg capsule 50 mg PO DAILY stomach 01/10/22 guaifenesin 100 mg/5 mL oral liquid 20 ml PO Q4H PRN PRN COUGH #0 mL 01/13/22 levofloxacin 750 mg tablet 750 mg PO DAILY #5 tabs 01/13/22 Hospital Course Procedures Thoracentesis and - (CT of the chest) Summary of Care Provided Minutes Spent on Discharge: 36 Hospital Course: Mrs. Velasco is a 61-year-old white female who presented to emergency department was [facility] on 01/10/2022 with a chief complaint of dyspnea. The patient reported on admission progressively worsening dyspnea over the last week but was associated with a nonproductive dry cough. She denied any fevers or chills, myalgias but did have significant fatigue and malaise. She complained of worsening dyspnea with exertion and pleuritic right-sided chest discomfort that has been ongoing for approximately 1 month prior to presentation. Pleuritic pain was worse with any deep inspiratory effort or with coughing. Work-up in the ED included T96.7, heart rate 69, BP 101/63, respiratory rate 22, initially 91% on room air however with exertion patient decreased to 87% on room air with improvement to 91 to 94% on 2 L nasal cannula however this is at rest, CBC with WC 7.1, hemoglobin 15.5, platelet 276 without any shift, BMP unremarkable, BNP 39.5, troponin 4, rapid COVID antigen negative, chest x-ray with a right-sided effusion with concern for right lower lobe pneumonia, EKG with sinus rhythm with no acute evidence of ischemia.? With a chest x-ray being concerning for right-sided pleural effusion or right lower lobe pneumonia a CTA of her chest was performed and showed no pulmonary embolus or aortic dissection/aneurysm but did show a large right pleural effusion with subsegmental atelectasis and a small soft tissue nodule in the right upper lobe. There are also was reported mild narrowing of the superior vena cava of unknown etiology. Given her large right pleural effusion a thoracentesis was ordered and performed on 01/11/2022 at which time 1300 cc of lisbet fluid were removed. Fluid was sent for cytology, cultures, and to obtain Light's criteria. Based on Light' criteria fluid was exudative in nature. A post thoracentesis CT of the chest was performed to assess for any right lower lobe issues and was positive for a persistent right lower lobe infiltrate and airspace disease. The patient was treated with Levaquin throughout her hospitalization. Strep pneumo and Legionella antigens were negative. Respiratory PCR was negative. As noted above her rapid COVID was negative. She was unable to produce a sputum culture during her course and at the time of discharge her pleural fluid gram stain showed very rare white blood cells with no organisms and culture was pending. It was thought that this was most likely a parapneumonic effusion and follow-up x-ray showed no reaccumulation of fluid. The patient progressed well on IV antibiotics and was able to be transition to oral antibiotics on the day of discharge 01/13/2022. Pulmonary did follow the patient throughout her hospital course and plans to follow-up as an outpatient. Regards to the pulmonary nodule found on her initial CTA she will require a follow-up CAT scan in 1 year given her high risk status as she has a tobacco abuse history. She currently smoking anywhere from 2 to 10 cigarettes daily. We strongly encouraged tobacco cessation. She was discharged home with a course of Levaquin to complete a total of 7 days, she was instructed to continue the Robitussin as needed. We did an ambulatory pulse oximetry on her and she did not require home oxygen at the time of discharge. She will follow-up in the pulmonary office in 2 weeks. She will likely need PFTs once her acute issues have improved as I do have a high suspicion she has COPD at baseline. She was able to be discharged home in stable condition on 01/13/2022. Discharge diagnoses: Acute hypoxia secondary to large right pleural effusion Right lower lobe pneumonia Large right exudative pleural effusion Pulmonary nodule History of stroke History of frontal lobe AVM Hypertension Hyperlipidemia Suspected COPD GERD Chronic abdominal pain Seasonal allergies PTSD Anxiety Depression Tobacco abuse Physical Exam Narrative Patient reports she is feeling better. No issues overnight. Has remained on room air. Const alert, oriented x3, no apparent distress and well nourished Constitutional Narrative: Obese white female sitting up in bed, appears comfortable, nontoxic, on room air and has been so overnight General Appearance: cooperative, comfortable, well kempt and well developed Orientation / Consciousness: awake Exam Limitations: no limitations Nutritional Appearance: obese HEENT normocephalic, head/scalp atraumatic, hearing grossly normal bilaterally and moist oral mucous membranes HEENT Narrative: Mallampati 3, no thrush Eyes PERRL, EOMs intact bilaterally and conjunctivae normal Eyes Narrative: No scleral icterus Neck no lymphadenopathy, supple and no JVD Neck Narrative: Trachea midline, no thyroid enlargement Resp normal respiratory effort, no retractions and no use of accessory muscles Resp Narrative: Diminished with few crackles right base but aeration remains much improved throughout the entire lung field on the right, slightly diminished but clear on the left, no tachypnea or conversational dyspnea Auscultation: Negative for crackles, rales, rhonchi or wheezes Cardio regular rate, regular rhythm, S1 normal heart sound, S2 normal heart sound, no murmurs, no rub, no gallops, no clicks and no JVD GI normal to inspection, nondistended, normoactive bowel sounds, soft to palpation, non-tender and non-distended; Negative for hepatosplenomegaly Extremity no clubbing, cyanosis or edema Skin no rashes or lesions noted, skin turgor normal and no jaundice Skin Narrative: Postthoracentesis puncture site right lower lung field appears to be healing well Neuro oriented x3, CN's II-XII intact bilaterally, moves all extremities and no focal motor deficits Sensorium / Orientation: awake, alert, oriented to person, oriented to place and oriented to time Speech: speech normal Motor Exam: strength 5/5 throughout Psych affect normal Psych Narrative: Very pleasant and appropriately interactive Weight / BMI Weight Weight: 89.3 kg Body Mass Index (BMI) 33.7 ABG / Lab / Microbiology Data Result Diagrams: 01/12/22 06:05 01/12/22 06:05 Microbiology: Microbiology 01/11/22 12:44 Fluid - Thoracentesis Fluid Gram Stain - Final 01/11/22 01:10 Urine, Clean Catch Legionella Antigen - Final 01/11/22 01:10 Urine, Clean Catch Streptococcus pneumoniae Antigen (M - Final 01/10/22 23:05 Mucosa - Nasopharyngeal Respiratory Panel (PCR) - Final 01/10/22 16:00 Nasal Secretion SARS-CoV-2 Antigen (Rapid) - Final Radiography Diagnostic Testing: Radiology Impression Chest CT 01/11/22 07:10 IMPRESSION: Status post right thoracentesis. 4.5 mm noncalcified nodule in the posterior aspect of the right upper lobe. Persistent infiltrate and airspace disease in the right lower lobe and right middle lobe as well as at the left lung base. Electronically Signed: Everett Westfall MD at 14:06 EDT , ADDENDUM: 01/12/22 1359 IMPRESSION: undefined Chest X-Ray 01/12/22 13:22 IMPRESSION: Progressive bibasilar infiltrates worse on the right side with small right pleural effusion. Electronically Signed: Everett Westfall MD at 13:45 EDT , Chest X-Ray 01/13/22 06:00 IMPRESSION: There is been mild progression of the pleural parenchymal changes at the right lung base. Stable increased markings at the left lung base. Electronically Signed: Everett Westfall MD at 8:21 EDT , D/C Instructions Discharge Diet: Low fat / Low cholesterol Discharge Activity: Return to Normal Activity Meaningful Use Info Meaningful Use Diagnoses (Choose all that apply): None applicable Discharge Plan Admission Admit Date/Time: 01/10/22 18:34 Primary Reason for Your Visit: Shortness of Breath Attending Provider: Marissa Tao Primary Care Provider: Sawyer Bacon Consulting Providers: Mana Juarez ; Yovani Finney ; Manuel Lindsay ; Avani Gan ENTERPRISE SYSTEMS ENGINEER Instructions Patient Instructions: GABRIELLA RN Thoracentesis Dc Discharge Orders/Prescriptions Prescriptions: New guaifenesin 100 mg/5 mL Liquid 20 ml PO Q4H PRN PRN (Reason: COUGH) Qty: 0 0RF levofloxacin 750 mg tablet 750 mg PO DAILY Qty: 5 0RF Continued atorvastatin 80 mg Tablet 80 mg PO DAILY gabapentin 600 mg Tablet 600 mg PO TID spironolactone 100 mg Tablet 100 mg PO DAILY clopidogrel 75 mg Tablet 75 mg PO DAILY quetiapine [Seroquel] 100 mg Tablet 100 mg PO QHS pantoprazole 40 mg Tablet,Delayed Release (Dr/Ec) 40 mg PO DAILY dicyclomine 10 mg Capsule 10 mg PO DAILY loratadine 10 mg Tablet 10 mg PO DAILY zonisamide 50 mg Capsule 50 mg PO DAILY metoprolol succinate 50 mg Capsule,Sprinkle,Er 24hr 50 mg PO DAILY Referrals / Follow Up: Sawyer Bacon MD [Primary Care Provider] - Within 1 Month Manuel Lindsay DO [Med Staff - Active Staff] - Within 2 Weeks Disposition Disposition (needs filled in before D/C Order can be placed): Home, Self Care Charges/Coding Visit Charges Inpatient E&M: 92061 Disch Hosp
--- NOTE | 2022-01-13 10:28 | CASEMGMT ---
Addendum entered by Stephani Krause 01/13/22 10:42: Pt did not qualify for home oxygen. Addendum entered by Stephani Krause 01/13/22 10:39: Pt declined need for any homecare services. Discussed obtaining a pox if patient prefers to monitor oxygen level. Original Note: ELSIE BARAKAT in to pt room as hospitalist would like a pulm appt set up in two weeks. Pt is unsure if she has a certified master safecracker or not. She asks RNROSHNI to call 's office to find out. TC to 's office, pt sees Dr.Elizabeth Lindsay. Scheduled appt with 's PA Jessika on 01/27 at 1:30p at the [facility]. Pt aware and placed on dc instructions.
[2022-01-13 13:24] LABS: Pathologist Comment/Body Fluid Reviewed
== END 2022-01-13 12:40 | disposition home or self-care (01) | DRG 180 ==
LOC: ED 19:04 → MS3 19:17
PROVIDERS: Radiology Diagnostic Radiology; Admitting Provider Family Medicine; Emergency Provider Student in an Organized Health Care Education/Training Program; PCP Family Medicine; Visit Provider Internal Medicine
DX: C34.11 Malignant neoplasm of upper lobe, right bronchus or lung (principal); J18.9 Pneumonia, unspecified organism; C79.9 Secondary malignant neoplasm of unspecified site; J44.0 Chronic obstructive pulmonary disease with (acute) lower respiratory infection; J91.0 Malignant pleural effusion; I10 Essential (primary) hypertension; E78.5 Hyperlipidemia, unspecified; F17.210 Nicotine dependence, cigarettes, uncomplicated; K21.9 Gastro-esophageal reflux disease without esophagitis; J30.2 Other seasonal allergic rhinitis; F41.9 Anxiety disorder, unspecified; G89.29 Other chronic pain; F43.10 Post-traumatic stress disorder, unspecified; F32.A Depression, unspecified; R09.02 Hypoxemia; Z79.01 Long term (current) use of anticoagulants; R91.1 Solitary pulmonary nodule; E66.9 Obesity, unspecified; Z68.34 Body mass index [BMI] 34.0-34.9, adult; Z71.6 Tobacco abuse counseling; Z79.02 Long term (current) use of antithrombotics/antiplatelets; Z79.899 Other long term (current) drug therapy; Z86.73 Personal history of transient ischemic attack (TIA), and cerebral infarction without residual deficits; Z80.1 Family history of malignant neoplasm of trachea, bronchus and lung
CPT/HCPCS: 32555; 36415; 71045; 71250; 71275; 80048; 80053; 82945; 83615; 83880; 84145; 84157; 84484; 85025; 85049; 85610; 85730; 87070; 87075; 87205; 87449; 87633; 87635; 87641; 87811; 88108; 88305; 88313; 88341; 88342; 89050; 93005; 94640; 94760; 94762; 99284; J7050; Q9967; A4216; U0003; U0005

== ENCOUNTER 2022-02-04 11:52 | Inpatient (IN) | payer MEDICARE, MEDICAID, SELFPAY ==
[2022-02-04] VITALS (12 sets, daily range): BP systolic 94–117; BP diastolic 70–89; PULSE 76–89; RESP 14–21; TEMP 36.3–37.1; O2SAT 86–93; BMI 34.2; BMI 34.0
--- NOTE | 2022-02-04 12:27 | EKG12_ITS ---
Test Reason : SOB Blood Pressure : / mmHG Vent. Rate : 076 BPM Atrial Rate : 076 BPM P-R Int : 138 ms QRS Dur : 082 ms QT Int : 380 ms P-R-T Axes : 001 065 -06 degrees QTc Int : 427 ms Normal sinus rhythm Nonspecific T wave abnormality Abnormal ECG Confirmed by ANN ALEXANDER, REEN ([id number]), sound editor LOPEZ GOVEA ([id number]) on 02/08/2022 8:58:37 AM Referred By: Confirmed By:CHARLY JUAREZ MD
--- NOTE | 2022-02-04 12:28 | EDS_ITS ---
HPI History of Present Illness Chief Complaint: Shortness of Breath Detail of Chief Complaint: Shortness of breath progressively worsening over the past 2 to 3 weeks Informant: patient Onset/Context/Timing Onset: Weeks Context: sudden and activity on onset Timing: Continuous and Waxes and wanes Quality: Positive for Dyspnea on exertion; Negative for Orthopnea, PND or Wheezing Current Severity: Mild Maximum Severity: Severe Worsened by: Exertion Relieved by: Nothing Associated Symptoms cough; Negative for rhinorrhea, post nasal drip, ear pain, fever, sore throat, subjective, chills, sweats, clear sputum, white sputum, yellow sputum or green sputum Chest Pain: Positive for None Narrative Narrative: Patient is a 61-year-old woman who was recently diagnosed with 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 She has a remote history of DVT. She denies history of PE. She does have history of hypertension, hypercholesterolemia and lung problems. She still smokes. She denies coronary disease. She denies orthopnea. She denies PND. She denies leg pain, swelling discoloration. PE Risk Factors: Positive for Cancer and Prior DVT or PE; Negative for OCP + Smoking + > 35, Recent immobilization, Recent surgery or Recent travel Prior similar symptoms: No Recent Illness/Hospitalization: No PFSH PFSH Medical History Adrenal tumor Anxiety and depression AVM (arteriovenous malformation) brain COPD with asthma GERD (gastroesophageal reflux disease) History of CVA (cerebrovascular accident) HLD (hyperlipidemia) HTN (hypertension) Obesity Pleural effusion PTSD (post-traumatic stress disorder) Pulmonary nodule Tobacco use Home Medications atorvastatin 80 mg tablet 80 mg PO DAILY cholesterol 01/10/22 [History Last Taken 01/10/22] clopidogrel 75 mg tablet 75 mg PO DAILY clot prevention 01/10/22 [History Last Taken 01/10/22] dicyclomine 10 mg capsule 10 mg PO DAILY stomach 01/10/22 [History Last Taken 01/10/22] gabapentin 600 mg tablet 600 mg PO TID pain 01/10/22 [History Last Taken 01/10/22] loratadine 10 mg tablet 10 mg PO DAILY allergies 01/10/22 [History Last Taken 01/10/22] metoprolol succinate 50 mg capsule sprinkle, ext. release 24 hr 50 mg PO DAILY blood pressure 01/10/22 [History Last Taken 01/10/22] pantoprazole 40 mg tablet,delayed release 40 mg PO DAILY GERD 01/10/22 [History Last Taken 01/10/22] quetiapine 100 mg tablet (Seroquel) 100 mg PO QHS sleep 01/10/22 [History Last Taken 01/09/22] spironolactone 100 mg tablet 100 mg PO DAILY diuretic 01/10/22 [History Last Taken 01/10/22] zonisamide 50 mg capsule 50 mg PO DAILY stomach 01/10/22 [History Last Taken 01/10/22] albuterol sulfate 90 mcg/actuation aerosol inhaler 2 puff inhalation Q4H PRN Shortness Of Breath 01/19/22 [History Last Taken Unknown] Allergy/AdvReac Type Severity Reaction Status Date / Time aspirin Allergy Other Verified 02/04/22 11:53 Penicillins Allergy Angioedema Verified 02/04/22 11:53 acetaminophen [From [place]] AdvReac Other Verified 02/04/22 11:53 hydrocodone [From [place]] AdvReac Other Verified 02/04/22 11:53 Family History Mother Thyroid disorder Cancer Lung CA with tobacco use history. Father Cerebral hemorrhage in his youth in the secondary to trauma, reported cerebral hemorrhage as one trauma but had additional injuries as well. Surgical History H/O brain surgery H/O right knee surgery History of appendectomy History of hysterectomy Social History household members: spouse Smoking Status: Light Smoker (<10/day) Tobacco: How many years used: 51 how long ago did patient quit smoking: Patient used to smoke 2ppd alcohol intake: current alcohol intake frequency: holidays/special occasions only substance use type: does not use ROS ROS ED Constitutional Constitutional ED: Denies chills, fever(s), sweats or weight loss Eyes Eyes: Denies blurry vision, change in vision or diplopia ENT ENT ED: Denies ear pain, rhinorrhea or sore throat Cardiovascular Cardiovascular: Reports palpitations; Denies chest pain, orthopnea, paroxysmal nocturnal dyspnea or racing heartbeat Respiratory/Chest Respiratory/Chest: Reports cough, dyspnea and dyspnea on exertion; Denies orthopnea or paroxysmal nocturnal dyspnea Gastrointestinal Gastrointestinal: Denies abdominal pain, diarrhea, nausea or vomiting Genitourinary Genitourinary ED: Denies dysuria, hematuria or urinary frequency Musculoskeletal Musculoskeletal: Denies arthralgias, back pain, myalgias or neck pain Integumentary Denies abscess, Abrasions or rash Neurologic Neurologic: Denies headache(s), paresthesias or weakness Psychiatric Psychiatric: Denies anxiety or depression Endocrine Endocrinology: Denies cold intolerance or heat intolerance Hematologic/Lymphatic Hematologic/Lymphatic: Denies easy bleeding, easy bruising or lymphadenopathy Allergic/Immunologic Allergic/Immunologic ED: Denies mouth swelling, tongue swelling or urticaria EXAM Physical Exam Const Vital Signs: 02/04/22 11:53 02/04/22 12:10 02/04/22 16:25 Temperature 98.7 F Temperature Source Temporal Pulse Rate 88 79 Respiratory Rate 14 16 Respiratory Effort Short of Breath Blood Pressure 117/89 H Blood Pressure Mean 98 Pulse Ox 91 93 Oxygen Delivery Method Room Air Room Air Nasal Cannula Oxygen Flow Rate (L/min) 6 Positive well nourished and well developed Constitutional Narrative: Patient appears in mild respiratory distress. She is breathing much rapid more rapidly than 14 documented by triage. General Appearance ED: well developed and pallor HEENT Reports dry mucous membranes HEENT Narrative: Ears normal. Nares patent. Uvula midline. No deviation tongue protrusion. No erythema or exudate of the posterior pharynx. atraumatic Mouth ED: Yes dry mucous membranes Mouth: dry mucous membranes Eyes PERRL and EOMs intact bilaterally General Eye ED: Yes pale conjunctiva; Negative for scleral icterus Neck no lymphadenopathy, supple and no meningeal signs Neck Narrative: Trachea midline. There is no answer Tory stridor. Resp No normal respiratory effort Resp Narrative: Mild scattered rales posteriorly right base and left lung field posteriorly Effort and Inspection: Negative for pain with movement Cardio regular rate, regular rhythm, S1 normal heart sound, S2 normal heart sound and no murmurs GI non-tender, non-distended and no masses Auscultation: hypoactive bowel sounds Palpation: soft Extremity Extremity Narrative: No discoloration. There is no asymmetry. There is no leg vein distention. There is no tenderness on the distribution of the venous system. General Extremety ED: Yes edema; Negative for tenderness General Extremity: edema Neuro oriented x3, CN's II-XII intact bilaterally and no sensory deficits noted [place] Coma Scale: document GCS findings Spontaneous Obeys Commands Oriented 15 Sensorium / Orientation: alert Psych mental status grossly normal Skin no wounds General Skin Exam: pallor; Negative for jaundice MDM MDM MDM Narrative Medical decision making narrative: Shortness of breath may be due to her metastatic cancer, need to evaluate for pneumonia and pulmonary embolus as well. EKG, chest x-ray and appropriate labs were obtained. This also may represent cardiac ischemia Patient dyspnea is due to a significant recurrent malignant effusion right hemithorax. Patient was informed that she needs a thoracentesis. Patient was explained risk benefits. She will sign consent. She has been informed there is complication with bleeding, pneumothorax and infection. She was informed of my prior complications. Patient complained of shortness of breath after thoracentesis. Pulse ox was low however the waveform was poor. Suspect patient has paradoxical hypoxia due to increased space. Chest x-ray reveals no evidence of pneumothorax. There is significant reduction in the malignant recurrent right pleural effusion. Patient oxygen has been tapered down slowly. She is 91%. Plan is to discharge to home. Lab Data Attestation: I reviewed the patient's lab results. Lab results narrative: CBC is unremarkable. Platelet count is greater than 150,000. Electrolyte panel is unremarkable. Transaminases unremarkable. Lactate is normal. Labs: Laboratory Results - last 24 hr 02/04/22 02/04/22 02/04/22 12:50 12:50 12:50 WBC 8.4 RBC 5.26 Hgb 15.6 H Hct 48.4 H MCV 92.0 MCH 29.7 MCHC 32.2 RDW Std Deviation 46.7 H RDW Coeff of Melia 13.8 Plt Count 290 MPV 10.2 Immature Gran % (Auto) 0.500 Neut % (Auto) 67.5 Lymph % (Auto) 21.8 [place] % (Auto) 8.4 Eos % (Auto) 1.2 Baso % (Auto) 0.6 Absolute Neuts (auto) 5.7 Absolute Lymphs (auto) 1.83 Nucleated RBC % 0 Sodium 139 Potassium 4.1 Chloride 104 Carbon Dioxide 30.0 Anion Gap 5 BUN 9 Creatinine 0.92 Estim Creat Clear Calc 57.78 Est GFR (MDRD) Af Amer 80 Est GFR (MDRD) Non-Af 66 BUN/Creatinine Ratio 9.8 L Glucose 105 Lactic Acid 1.2 Calcium 8.9 Total Bilirubin 0.60 AST 15 ALT 22 Alkaline Phosphatase 172 H Troponin I High Sens 5 Total Protein 7.1 Albumin 3.0 L Globulin 4.1 Albumin/Globulin Ratio 0.7 L Radiography Chest X-Ray - ED: 1 View (We will do stat portable chest x-ray after thoracentesis. Patient has minimal residual effusion noted on the right. There is no evidence of pneumothorax. There is a mass in the right lower lung noted. This was independently reviewed and interpreted by me at 1627.) Diagnostic Testing: Clinical Impression(s) from Imaging Studies Chest X-Ray 02/04/22 12:50 IMPRESSION: Moderate to large right pleural effusion with right basilar atelectasis. Electronically Signed: Everett Westfall MD at 13:04 EDT , Chest X-Ray 02/04/22 16:27 IMPRESSION: Persistent pleural-parenchymal densities right lung base. Clearing of the left lower lobe atelectasis. Electronically Signed: Bijan Win MD at 16:39 EDT , EKG Initial EKG: Attestation: I personally reviewed and interpreted this EKG as follows: Interpretation: Sinus Rhythm (Trickle rate of 76. ND intervals 138 ms. QS duration 82 ms. QT duration 380 ms. [place] is normal. There is an ossific changes noted.) Discharge Plan Triage Chief Complaint: Shortness of Breath ED Provider: Antonio Colby Dx/Rx/DC Orders Clinical Impression: Malignant pleural effusion, Acute dyspnea, Metastatic non-small cell lung cancer Instructions: ED Pleural Effusion Prescriptions: No Action albuterol sulfate 90 mcg/actuation HFA aerosol inhaler 2 puff inhalation Q4H PRN (Reason: Shortness Of Breath) atorvastatin 80 mg Tablet 80 mg PO DAILY gabapentin 600 mg Tablet 600 mg PO TID spironolactone 100 mg Tablet 100 mg PO DAILY clopidogrel 75 mg Tablet 75 mg PO DAILY quetiapine [Seroquel] 100 mg Tablet 100 mg PO QHS pantoprazole 40 mg Tablet,Delayed Release (Dr/Ec) 40 mg PO DAILY dicyclomine 10 mg Capsule 10 mg PO DAILY loratadine 10 mg Tablet 10 mg PO DAILY zonisamide 50 mg Capsule 50 mg PO DAILY metoprolol succinate 50 mg Capsule,Sprinkle,Er 24hr 50 mg PO DAILY Primary Care Provider: Sawyer Bacon Referrals: Sawyer Bacon MD [Primary Care Provider] - 5-7 Days Activity Restrictions/Additional Instructions: You need to contact your oncologist to discuss treatment options for recurrent pleural effusion Disposition Disposition: Home, Self Care
--- NOTE | 2022-02-04 12:50 | RAD_ITS ---
STUDY: X-RAY CHEST REASON FOR EXAM: Female, 61 years old. Dyspnea TECHNIQUE: Single AP portable view of the chest. COMPARISON: Comparison is made with prior study 01/13/2022. FINDINGS: EKG electrodes are seen. Moderate to large right pleural effusion with right basilar atelectasis. The left lung is clear. Normal size heart. Normal mediastinum and [place]. Normal visualized pulmonary arteries. Normal visualized aortic arch and descending thoracic aorta. Normal visualized thoracic spine. Normal visualized ribs, clavicles, and shoulders. There is no demonstrated abnormality of the visualized soft tissue structures of the upper abdomen. RAD/Chest 1 View (Portable) IMPRESSION: Moderate to large right pleural effusion with right basilar atelectasis. Electronically Signed: Everett Westfall MD at 13:04 EDT ,
[2022-02-04 13:02] LABS: Absolute Lymphocyte Count 1.83 X10^3/uL (0.83-4.51); Absolute Neutrophil Count 5.7 X10^3/uL (2.0-7.7); Basophil# 0.05 X10^3/uL; Basophil% 0.6 % (0-1); Eosinophils% 1.2 % (0-5); Hematocrit 48.4 % (37-47); Hemoglobin 15.6 g/dL (12.0-15.0); Lymphocyte # 1.83 X10^3/ul (0.83-4.51); Lymphocyte % 21.8 % (19-41); Mean Corp Hgb Conc 32.2 g/dL (32-36); Mean Corpuscular Hgb 29.7 pg (27.0-32.0); Mean Platelet Vol. 10.2 fl (6.2-12.0); Monocyte# 0.71 X10^3/uL; Monocyte% 8.4 % (0-10); NRBC Flagged by Analyzer 0 % (0-5); Neutrophil # 5.68 X10^3/uL (2.7-7.7); Neutrophil % 67.5 % (47-70); Platelet Count 290 K/mm3 (150-450); RBC Distribution Width CV 13.8 % (11.6-14.6); RBC Distribution Width SD 46.7 fl (35.1-43.9); Red Blood Count 5.26 M/mm3 (4.2-5.4); White Blood Count 8.4 K/mm3 (4.4-11.0)
[2022-02-04 13:16] LABS: ALB/GLOB Ratio 0.7 RATIO (0.9-2.4); AST(SGOT) 15 U/L (15-37); Alanine Aminotransfer ALT/SGPT 22 U/L (13-56); Alkaline Phosphatase 172 U/L (45-117); Anion Gap 5 (5-15); BUN 9 mg/dL (7-18); BUN/Creat Ratio 9.8 RATIO (10-20); Calcium,Total 8.9 mg/dL (8.5-10.1); Chloride 104 mmol/L (98-107); Creatinine, Serum 0.92 mg/dL (0.55-1.02); EST Glomerular Filtration Rate 66 mL/min (>60); Est Glom Filt Rate - Afr Amer 80 mL/min (>60); Estimated Creatinine Clearance 57.78 ml/min; Globulin 4.1 g/dL (2.2-4.2); Glucose 105 mg/dL (74-106); Potassium 4.1 mmol/L (3.5-5.1); Protein, Total 7.1 g/dL (6.4-8.2); Sodium Level 139 mmol/L (136-145); Troponin-I HS 5 pg/mL (3.0-54.0)
[2022-02-04 13:32] LABS: Lactic Acid 1.2 mmol/L (0.4-1.9)
--- NOTE | 2022-02-04 16:27 | RAD_ITS ---
EXAM: XR CHEST, 1 VIEW CLINICAL INDICATION: Status postthoracentesis TECHNIQUE: Frontal view of the chest. This report was created using [employer] report generation technology. COMPARISON: None. FINDINGS: LUNGS AND PLEURAL SPACES: Clearing of the left lower lobe atelectasis. Persistent small right pleural effusion with underlying atelectasis of the right lower lobe. No pneumothorax. HEART: Normal heart size. MEDIASTINUM: Central airways and mediastinal contour are unremarkable. BONES/JOINTS: No acute abnormality. SOFT TISSUES: Normal. RAD/Chest 1 View (Portable) IMPRESSION: Persistent pleural-parenchymal densities right lung base. Clearing of the left lower lobe atelectasis. Electronically Signed: Bijan Win MD at 16:39 EDT ,
[2022-02-04] MEDS: Morphine 4 MG/ML Syringe IV (16:28)
--- NOTE | 2022-02-04 17:12 | RAD_ITS ---
STUDY: X-RAY CHEST REASON FOR EXAM: Female, 61 years old. hypoxia TECHNIQUE: XR Chest 1 View COMPARISON: Study done earlier today. FINDINGS: There is a right pleural effusion. New right lower lobe infiltrate. Normal size heart. Normal mediastinum and antelmo. Normal visualized pulmonary arteries. There is atherosclerotic calcification of the aortic arch with tortuosity. There are diffuse degenerative changes of the visualized thoracic spine. There is degenerative osteoarthritis of the bilateral shoulders. There is no demonstrated abnormality of the visualized soft tissue structures of the upper abdomen. RAD/Chest 1 View (Portable) IMPRESSION: There is a right pleural effusion. New right lower lobe infiltrate. Electronically Signed: Benjie Garrison MD at 17:37 EDT ,
--- NOTE | 2022-02-04 18:11 | NURSING ---
MED SURG OBS JOPPERI PLEURAL EFFUSION, HYPOXIA
--- NOTE | 2022-02-04 18:48 | HP.PCM.HOS_ITS ---
[facility] - General General Date of Admission: 02/04/22 Date of Service: 02/04/22 Chief Complaint: Shortness of breath HPI Narrative YINKA BUSH, is a 61 F who presents with shortness of breath. Patient was admitted from January 10 to and she was found to have acute hypoxic respiratory failure secondary to large right pleural effusion. Patient at that time on the , had removed 1.3 L. Cytology came back showing malignant pleural effusion with primary lung non-small cell carcinoma adenocarcinoma with metastasis. She has been more short of breath over this past couple weeks though not to the extreme that she was not then. Patient was found to have a pleural effusion and had a thoracentesis performed removing greater than 2 L of dark lisbet-colored fluid. The plan was for the patient to go home but her pulse ox dropped into t he 80% range and patient was symptomatic. The hospital service was contacted for admission. Patient does complain of right upper chest and right lateral chest while she was getting the thoracentesis that still ongoing. PFSH Medical History Adrenal tumor Anxiety and depression AVM (arteriovenous malformation) brain COPD with asthma GERD (gastroesophageal reflux disease) History of CVA (cerebrovascular accident) HLD (hyperlipidemia) HTN (hypertension) Obesity Pleural effusion PTSD (post-traumatic stress disorder) Pulmonary nodule Tobacco use Home Medications atorvastatin 80 mg tablet 80 mg PO DAILY cholesterol 01/10/22 [History Last Taken 01/10/22] clopidogrel 75 mg tablet 75 mg PO DAILY clot prevention 01/10/22 [History Last Taken 01/10/22] dicyclomine 10 mg capsule 10 mg PO DAILY stomach 01/10/22 [History Last Taken 01/10/22] gabapentin 600 mg tablet 600 mg PO TID pain 01/10/22 [History Last Taken 01/10/22] loratadine 10 mg tablet 10 mg PO DAILY allergies 01/10/22 [History Last Taken 01/10/22] metoprolol succinate 50 mg capsule sprinkle, ext. release 24 hr 50 mg PO DAILY blood pressure 01/10/22 [History Last Taken 01/10/22] pantoprazole 40 mg tablet,delayed release 40 mg PO DAILY GERD 01/10/22 [History Last Taken 01/10/22] quetiapine 100 mg tablet (Seroquel) 100 mg PO QHS sleep 01/10/22 [History Last Taken 01/09/22] spironolactone 100 mg tablet 100 mg PO DAILY diuretic 01/10/22 [History Last Taken 01/10/22] zonisamide 50 mg capsule 50 mg PO DAILY stomach 01/10/22 [History Last Taken 01/10/22] albuterol sulfate 90 mcg/actuation aerosol inhaler 2 puff inhalation Q4H PRN Shortness Of Breath 01/19/22 [History Last Taken Unknown] Allergy/AdvReac Type Severity Reaction Status Date / Time aspirin Allergy Other Verified 02/04/22 11:53 Penicillins Allergy Angioedema Verified 02/04/22 11:53 acetaminophen [From [place]] AdvReac Other Verified 02/04/22 11:53 hydrocodone [From [place]] AdvReac Other Verified 02/04/22 11:53 Family History Mother Thyroid disorder Cancer Lung CA with tobacco use history. Father Cerebral hemorrhage in his youth in the secondary to trauma, reported cerebral hemorrhage as one trauma but had additional injuries as well. Surgical History H/O brain surgery H/O right knee surgery History of appendectomy History of hysterectomy Social History household members: spouse Smoking Status: Light Smoker (<10/day) Tobacco: How many years used: 51 how long ago did patient quit smoking: Patient used to smoke 2ppd alcohol intake: current alcohol intake frequency: holidays/special occasions on ly substance use type: does not use ROS ROS Narrative All review of systems were negative except as mentioned above in the history of present illness and the other review of systems. Vital Signs Vital Signs Vital Signs: 02/04/22 11:53 02/04/22 12:10 02/04/22 16:25 Temperature 37.1 C Temperature Source Temporal Pulse Rate 88 79 Respiratory Rate 14 16 Respiratory Effort Short of Breath Blood Pressure 117/89 H Blood Pressure Mean 98 Pulse Ox 91 93 Oxygen Delivery Method Room Air Room Air Nasal Cannula Oxygen Flow Rate (L/min) 6 02/04/22 17:00 02/04/22 17:01 02/04/22 17:06 Temperature Temperature Source Pulse Rate Respiratory Rate Respiratory Effort Blood Pressure Blood Pressure Mean Pulse Ox 93 91 86 Oxygen Delivery Method Nasal Cannula Room Air Room Air Oxygen Flow Rate (L/min) 1 02/04/22 17:41 02/04/22 17:42 02/04/22 18:35 Temperature 36.4 C L Temperature Source Temporal Pulse Rate 76 Respiratory Rate 15 Respiratory Effort Blood Pressure 94/70 Blood Pressure Mean 78 Pulse Ox 87 92 90 Oxygen Delivery Method Room Air Nasal Cannula Nasal Cannula Oxygen Flow Rate (L/min) 2 2 Weight Weight: 93.44 kg Body Mass Index (BMI) 34.2 Physical Exam Const alert and no apparent distress Resp normal respiratory effort Resp Narrative: Diminished in the right base Cardio regular rate, regular rhythm, S1 normal heart sound and S2 normal heart sound GI normal to inspection, nondistended, normoactive bowel sounds, soft to palpation, non-tender and non-distended Extremity normal to inspection Psych affect normal Results Lab / Micro Data Attestation: I reviewed the patient's lab results. Result Diagrams: 02/04/22 12:50 02/04/22 12:50 Labs: Laboratory Results - last 24 hr 02/04/22 12:50: WBC 8.4, RBC 5.26, Hgb 15.6 H, Hct 48.4 H, MCV 92.0, MCH 29.7, MCHC 32.2, RDW Std Deviation 46.7 H, RDW Coeff of Melia 13.8, Plt Count 290, MPV 10.2, Immature Gran % (Auto) 0.500, Neut % (Auto) 67.5, Lymph % (Auto) 21.8, [place] % (Auto) 8.4, Eos % (Auto) 1.2, Baso % (Auto) 0.6, Absolute Neuts (auto) 5.7, Absolute Lymphs (auto) 1.83, Nucleated RBC % 0 02/04/22 12:50: Sodium 139, Potassium 4.1, Chloride 104, Carbon Dioxide 30.0, Anion Gap 5, BUN 9, Creatinine 0.92, Estim Creat Clear Calc 57.78, Est GFR (MDRD) Af Amer 80, Est GFR (MDRD) Non-Af 66, BUN/Creatinine Ratio 9.8 L, Glucose 105, Calcium 8.9, Total Bilirubin 0.60, AST 15, ALT 22, Alkaline Phosphatase 172 H, Troponin I High Sens 5, Total Protein 7.1, Albumin 3.0 L, Globulin 4.1, Albumin/Globulin Ratio 0.7 L 02/04/22 12:50: Lactic Acid 1.2 Chest x-ray is reviewed: Initial chest x-ray showed a large right pleural effusion. Subsequent x-ray showed dramatic improvement of that right pleural effusion and then follow-up x-ray after that showed a right lower lobe infiltrate. Radiology Impression Chest X-Ray 02/04/22 12:50 IMPRESSION: Moderate to large right pleural effusion with right basilar atelectasis. Electronically Signed: Everett Westfall MD at 13:04 EDT , Chest X-Ray 02/04/22 16:27 IMPRESSION: Persistent pleural-parenchymal densities right lung base. Clearing of the left lower lobe atelectasis. Electronically Signed: Bijan Win MD at 16:39 EDT , Chest X-Ray 02/04/22 17:12 IMPRESSION: There is a right pleural effusion. New right lower lobe infiltrate. Electronically Signed: Benjie Garrison MD at 17:37 EDT , Assessment & Plan Assessment/Plan (1) Acute respiratory failure with hypoxia: PLAN: Secondary to atelectasis. Given the rapid onset, pneumonia would be less likely. Wean oxygen as able Incentive spirometer Check home oxygen in the morning (2) Malignant pleural effusion: PLAN: Secondary to adenocarcinoma This is the patient's second thoracentesis since 11 January Patient will need follow-up chest x-ray and I told the patient that she may need recurrent thoracentesis until her cancer can be adequately treated but hopefully that could be facilitated on outpatient basis rather than her returning to the emergency room. Patient brought up having surgery or catheter placement. I told her that that may be an option in the future but given that she has anyone received chemotherapy yet that those would not be recommended procedures at this point. Told patient that she may well need decortication and pleurodesis in the future but would not feel that would be necessary at this point in time and additionally that she would need to see a cardiothoracic surgeon. (3) Metastatic non-small cell lung cancer: PLAN: Patient is in the process of getting completely staged and has a PET scan coming up. Patient is going to be following up with Dr. Gomez in [place] PLAN: Plan VTE prophylaxis: Not indicated at this time given that she is observation status. CODE STATUS: Addressed with the patient. Patient stated that she initially wanted to have CPR but did not want to be intubated. I told her that if she were to survive CPR that she would likely require life support. Patient then stated that she would not want to have CPR. Patient made aware that she can change her mind at any point if she wishes. Charges/Coding Visit Charges OBSV E&M: 16685 Initial observation care L2
[2022-02-04] MEDS: oxyCODONE 5 MG Tablet 10 MG PO (20:54)
[2022-02-04] MEDS: Gabapentin 600 MG Tablet PO (20:54)
[2022-02-04] MEDS: QUEtiapine 100 MG Tablet PO (21:47)
[2022-02-05] VITALS (11 sets, daily range): BP systolic 89–105; BP diastolic 53–79; PULSE 76–82; RESP 12–18; TEMP 36.2–36.8; O2SAT 87–96
[2022-02-05] MEDS: oxyCODONE 5 MG Tablet 10 MG PO ×2 (06:27→11:55)
[2022-02-05] MEDS: Gabapentin 600 MG Tablet PO ×3 (06:27→22:14)
[2022-02-05] MEDS: Dicyclomine 10 MG Capsule PO (07:37)
--- NOTE | 2022-02-05 08:35 | PCM.PN.HOSP ---
Subjective Subjective Breathing well, but oxygen increased. Objective Data Objective Data Vital Signs: Vital Signs Temp Pulse Resp BP Pulse Ox O2 Del Method O2 Flow Rate 36.6 C 79 14 104/61 96 Nasal Cannula 6 02/05/22 02:57 02/05/22 02:57 02/05/22 02:57 02/05/22 02:57 02/05/22 07:41 02/05/22 07:41 02/05/22 07:41 Oxygen Flow Rate (L/min) 6 Oxygen Delivery Method Nasal Cannula Weight: 92.6 kg Body Mass Index (BMI) 34.0 Intake & Output: Intake and Output for Last 24 Hours 02/03/22 02/04/22 02/05/22 23:59 23:59 23:59 Intake Total 100 / 100 Balance 100 / 100 Lab / Micro Data Result Diagrams: 02/04/22 12:50 02/04/22 12:50 Labs: Laboratory Results - last 24 hr 02/04/22 12:50: WBC 8.4, RBC 5.26, Hgb 15.6 H, Hct 48.4 H, MCV 92.0, MCH 29.7, MCHC 32.2, RDW Std Deviation 46.7 H, RDW Coeff of Melia 13.8, Plt Count 290, MPV 10.2, Immature Gran % (Auto) 0.500, Neut % (Auto) 67.5, Lymph % (Auto) 21.8, [place] % (Auto) 8.4, Eos % (Auto) 1.2, Baso % (Auto) 0.6, Absolute Neuts (auto) 5.7, Absolute Lymphs (auto) 1.83, Nucleated RBC % 0 02/04/22 12:50: Sodium 139, Potassium 4.1, Chloride 104, Carbon Dioxide 30.0, Anion Gap 5, BUN 9, Creatinine 0.92, Estim Creat Clear Calc 57.78, Est GFR (MDRD) Af Amer 80, Est GFR (MDRD) Non-Af 66, BUN/Creatinine Ratio 9.8 L, Glucose 105, Calcium 8.9, Total Bilirubin 0.60, AST 15, ALT 22, Alkaline Phosphatase 172 H, Troponin I High Sens 5, Total Protein 7.1, Albumin 3.0 L, Globulin 4.1, Albumin/Globulin Ratio 0.7 L 02/04/22 12:50: Lactic Acid 1.2 Radiography Diagnostic Testing: Radiology Impression Chest X-Ray 02/04/22 12:50 IMPRESSION: Moderate to large right pleural effusion with right basilar atelectasis. Electronically Signed: Everett Westfall MD at 13:04 EDT , Chest X-Ray 02/04/22 16:27 IMPRESSION: Persistent pleural-parenchymal densities right lung base. Clearing of the left lower lobe atelectasis. Electronically Signed: Bijan Win MD at 16:39 EDT , Chest X-Ray 02/04/22 17:12 IMPRESSION: There is a right pleural effusion. New right lower lobe infiltrate. Electronically Signed: Benjie Garrison MD at 17:37 EDT , Physical Exam Const alert Cardio regular rate, regular rhythm, S1 normal heart sound and S2 normal heart sound GI normal to inspection, nondistended, normoactive bowel sounds and soft to palpation Psych affect normal Assessment & Plan Assessment/Plan (1) Acute respiratory failure with hypoxia: PLAN: Secondary to atelectasis. Given the rapid onset, pneumonia would be less likely. Wean oxygen as able Incentive spirometer Check home oxygen in the morning Up to 6 liters Repeat chest x-ray shows increased right lower lobe infiltrate versus effusion. Will add antibiotics. Continue with pulmonary toilet. 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 Patient brought up having surgery or catheter placement. I told her that that may be an option in the future but given that she has anyone received chemotherapy yet that those would not be recommended procedures at this point. Told patient that she may well need decortication and pleurodesis in the future but would not feel that would be necessary at this point in time and additionally that she would need to see a cardiothoracic surgeon. (3) Metastatic non-small cell lung cancer: PLAN: Patient is in the process of getting completely staged and has a PET scan coming up. Patient is going to be following up with Dr. Gomez in [place] PLAN: Plan VTE prophylaxis: Not indicated at this time given that she is observation status. CODE STATUS: Addressed with the patient. Patient stated that she initially wanted to have CPR but did not want to be intubated. I told her that if she were to survive CPR that she would likely require life support. Patient then stated that she would not want to have CPR. Patient made aware that she can change her mind at any point if she wishes. Disposition: To be determined. Given the patient's worsening status and or continuing to worsen chest x-ray, patient be monitored on another night Charges/Coding Visit Charges Inpatient E&M: 57771 Subs Hosp L2
[2022-02-05] MEDS: Atorvastatin Calcium 80 MG Tablet PO (09:04)
[2022-02-05] MEDS: Pantoprazole Sodium 40 MG Tablet PO (09:04)
[2022-02-05] MEDS: Zonisamide 50 MG Capsule PO (09:04)
[2022-02-05] MEDS: Clopidogrel Bisulfate 75 MG Tablet PO (09:04)
[2022-02-05] MEDS: Loratadine 10 MG Tablet PO (09:04)
[2022-02-05] MEDS: Spironolactone 50 MG Tablet 100 MG PO (09:06)
--- NOTE | 2022-02-05 10:02 | RAD_ITS ---
STUDY: X-RAY CHEST REASON FOR EXAM: Female, 61 years old. Respiratory failure TECHNIQUE: Single AP portable view of the chest. COMPARISON: 02/04/2022. FINDINGS: Right lower lung infiltrates increased since previous examination. Mild linear subsegmental atelectatic changes in the left lung base new since previous exam. Probable trace of right pleural effusion. Normal size heart. Normal mediastinum and antelmo. Normal visualized pulmonary arteries. There is atherosclerotic tortuosity of the aortic arch and descending thoracic aorta. Normal visualized thoracic spine. Normal visualized ribs, clavicles, and shoulders. There is no demonstrated abnormality of the visualized soft tissue structures of the upper abdomen. RAD/Chest 1 View (Portable) IMPRESSION: 1. Right lower lung infiltrate increased since previous examination. 2. Mild linear left basilar subsegmental atelectasis. Electronically Signed: Zenon Cameron MD at 12:01 EDT ,
[2022-02-05] MEDS: Metoprolol(XL)Succ 25 MG Tablet PO (11:04)
[2022-02-05] MEDS: Ceftriaxone 1 GM/50 ML BAG IV (13:02)
--- NOTE | 2022-02-05 17:53 | CASEMGMT ---
ELSIE BARAKAT Chart review: Patient was admitted 01/10/22-01/13/22 for hypoxia, RLL pneumonia, and pleural effusions. See ELSIE BARAKAT assessment from 01/11/22. Patient discharged to home and did not qualify for home oxygen. Patient returned to [facility] ED on 02/04 for increased SOB and admitted for hypoxia and pleural effusions. Patient states went to follow-up appts as scheduled. ELSIE BARAKAT in to discuss possible HHC at discharge. List of DME providers in-network with her insurance provided and prefers [facility]. Patient denies need for HHC at discharge. Green Sheet placed on chart for possible home oxygen at discharge.
[2022-02-05] MEDS: oxyCODONE 5 MG Tablet PO (19:47)
[2022-02-05] MEDS: QUEtiapine 100 MG Tablet PO (22:14)
[2022-02-06] VITALS (14 sets, daily range): BP systolic 88–105; BP diastolic 47–70; PULSE 80–88; RESP 14–18; TEMP 35.6–36.9; O2SAT 91–95
[2022-02-06] MEDS: oxyCODONE 5 MG Tablet PO ×2 (00:03→08:06)
[2022-02-06] MEDS: 0.9% Saline Lock 10 ML Syringe IV (04:09)
[2022-02-06 05:48] LABS: Absolute Lymphocyte Count 1.59 X10^3/uL (0.83-4.51); Absolute Neutrophil Count 5.6 X10^3/uL (2.0-7.7); Basophil# 0.03 X10^3/uL; Basophil% 0.4 % (0-1); Eosinophil# 0.13 X10^3/uL; Eosinophils% 1.6 % (0-5); Hematocrit 43.4 % (37-47); Hemoglobin 13.5 g/dL (12.0-15.0); Lymphocyte # 1.59 X10^3/ul (0.83-4.51); Lymphocyte % 19.7 % (19-41); Mean Corp Hgb Conc 31.1 g/dL (32-36); Mean Corpuscular Hgb 29.3 pg (27.0-32.0); Mean Corpuscular Volume 94.3 fL (81-99); Mean Platelet Vol. 10.2 fl (6.2-12.0); Monocyte# 0.75 X10^3/uL; Monocyte% 9.3 % (0-10); NRBC Flagged by Analyzer 0 % (0-5); Neutrophil # 5.55 X10^3/uL (2.7-7.7); Neutrophil % 68.6 % (47-70); Platelet Count 226 K/mm3 (150-450); RBC Distribution Width CV 13.5 % (11.6-14.6); White Blood Count 8.1 K/mm3 (4.4-11.0)
[2022-02-06 06:24] LABS: Anion Gap 4 (5-15); BUN 11 mg/dL (7-18); BUN/Creat Ratio 15.9 RATIO (10-20); Calcium,Total 7.9 mg/dL (8.5-10.1); Chloride 103 mmol/L (98-107); Creatinine, Serum 0.69 mg/dL (0.55-1.02); EST Glomerular Filtration Rate 91 mL/min (>60); Est Glom Filt Rate - Afr Amer 110 mL/min (>60); Estimated Creatinine Clearance 77.04 ml/min; Glucose 117 mg/dL (74-106); Potassium 4.2 mmol/L (3.5-5.1); Sodium Level 136 mmol/L (136-145)
[2022-02-06] MEDS: Gabapentin 600 MG Tablet PO ×3 (06:39→20:35)
--- NOTE | 2022-02-06 07:15 | CPS ---
pt instructed to do pep on own 10 breaths at a time throughout day
--- NOTE | 2022-02-06 07:50 | PN.HOSP_ITS ---
Subjective Subjective Breathing better but on 5 L nasal cannula. Objective Data Objective Data Vital Signs: Vital Signs Temp Pulse Resp BP Pulse Ox O2 Del Method O2 Flow Rate 36.2 C L 82 16 101/53 L 92 Nasal Cannula 5 02/06/22 07:44 02/06/22 07:44 02/06/22 07:44 02/06/22 07:44 02/06/22 07:44 02/06/22 07:44 02/06/22 07:44 Oxygen Flow Rate (L/min) [ 3 AMBULATING with Oxygen #1] Oxygen Flow Rate (L/min) [At 3 REST with Oxygen] Oxygen Flow Rate (L/min) 5 Oxygen Delivery Method Nasal Cannula Weight: 92.6 kg Body Mass Index (BMI) 34.0 Intake & Output: Intake and Output for Last 24 Hours 02/04/22 02/05/22 02/06/22 23:59 23:59 23:59 Intake Total 1365 / 1365 500 / 500 Output Total 700 / 700 Balance 1365 / 1365 -200 / -200 Lab / Micro Data Result Diagrams: 02/06/22 05:34 02/06/22 05:34 Labs: Laboratory Results - last 24 hr 02/06/22 05:34: WBC 8.1, RBC 4.60, Hgb 13.5, Hct 43.4, MCV 94.3, MCH 29.3, MCHC 31.1 L, RDW Std Deviation 47.0 H, RDW Coeff of Melia 13.5, Plt Count 226, MPV 10.2, Immature Gran % (Auto) 0.400, Neut % (Auto) 68.6, Lymph % (Auto) 19.7, [place] % (Auto) 9.3, Eos % (Auto) 1.6, Baso % (Auto) 0.4, Absolute Neuts (auto) 5.6, Absolute Lymphs (auto) 1.59, Nucleated RBC % 0 02/06/22 05:34: Sodium 136, Potassium 4.2, Chloride 103, Carbon Dioxide 29.0, Anion Gap 4 L, BUN 11, Creatinine 0.69, Estim Creat Clear Calc 77.04, Est GFR (MDRD) Af Amer 110, Est GFR (MDRD) Non-Af 91, BUN/Creatinine Ratio 15.9, Glucose 117 H, Calcium 7.9 L Micro: Microbiology 02/05/22 18:20 Nasal Secretion SARS-CoV-2 Antigen (Rapid) - Final 02/05/22 18:00 Urine, Clean Catch Legionella Antigen - Final 02/05/22 18:00 Urine, Clean Catch Streptococcus pneumoniae Antigen (M - Final Radiography Diagnostic Testing: Radiology Impression Chest X-Ray 02/05/22 10:02 IMPRESSION: 1. Right lower lung infiltrate increased since previous examination. 2. Mild linear left basilar subsegmental atelectasis. Electronically Signed: Zenon Cameron MD at 12:01 EDT , Physical Exam Const alert and no apparent distress Resp normal respiratory effort Resp Narrative: Wheezes bilaterally Cardio regular rate, regular rhythm, S1 normal heart sound and S2 normal heart sound GI normal to inspection, nondistended, normoactive bowel sounds and soft to palpation Extremity normal to inspection Neuro oriented x3 Sensorium / Orientation: awake and alert Assessment & Plan Assessment/Plan (1) Acute respiratory failure with hypoxia: PLAN: Pleural effusion plus minus pneumonia plus minus atelectasis Wean oxygen as able Incentive spirometer Check home oxygen in the morning Up to 6 liters Repeat chest x-ray shows increased right lower lobe infiltrate versus effusion. Will add antibiotics. Continue with pulmonary toilet. Add low-dose of IV furosemide in case there is a CHF component. Check 2D echocardiogram I reviewed the patient's chest x-ray today and the report shows its overall worsening but I feel that is actually improvement from the day before. Will repeat chest x-ray in the a.m. to eval for the pleural effusion which is again present but not as pronounced as it was before the thoracentesis. 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 Patient brought up having surgery or catheter placement. I told her that that may be an option in the future but given that she has anyone received chemothe rapy yet that those would not be recommended procedures at this point. Told patient that she may well need decortication and pleurodesis in the future but would not feel that would be necessary at this point in time and additionally that she would need to see a cardiothoracic surgeon. (3) Metastatic non-small cell lung cancer: PLAN: Patient is in the process of getting completely staged and has a PET scan coming up. Patient is going to be following up with Dr. Gomez in [place] PLAN: Plan VTE prophylaxis: Not indicated at this time given that she is observation status. CODE STATUS: Addressed with the patient. Patient stated that she initially wanted to have CPR but did not want to be intubated. I told her that if she were to survive CPR that she would likely require life support. Patient then stated that she would not want to have CPR. Patient made aware that she can change her mind at any point if she wishes. Disposition: To be determined. Charges/Coding Visit Charges Inpatient E&M: 32266 Subs Hosp L2
--- NOTE | 2022-02-06 08:00 | RAD_ITS ---
STUDY: X-RAY CHEST REASON FOR EXAM: Female, 61 years old. Follow-up pneumonia. TECHNIQUE: Single AP portable view of the chest. COMPARISON: 02/05/2022. FINDINGS: Right lower lung infiltrates increased since previous examination. Mild atelectatic changes in the left lung base. Small right pleural effusion. Normal size heart. Normal mediastinum and antelmo. Normal visualized pulmonary arteries. There is atherosclerotic tortuosity of the aortic arch and descending thoracic aorta. Stable soft tissues and osseous structures. There is no demonstrated abnormality of the visualized soft tissue structures of the upper abdomen. RAD/Chest 1 View (Portable) IMPRESSION: 1. Right lower lung infiltrate concerning for pneumonia increased since previous examination. 2. Small right pleural effusion. 3. Mild atelectatic changes in the left lung base. Electronically Signed: Zenon Cameron MD at 8:29 EDT ,
[2022-02-06] MEDS: Pantoprazole Sodium 40 MG Tablet PO (08:05)
[2022-02-06] MEDS: Loratadine 10 MG Tablet PO (08:06)
[2022-02-06] MEDS: Clopidogrel Bisulfate 75 MG Tablet PO (08:06)
[2022-02-06] MEDS: Atorvastatin Calcium 80 MG Tablet PO (08:06)
[2022-02-06] MEDS: Dicyclomine 10 MG Capsule PO (08:06)
[2022-02-06] MEDS: Ceftriaxone 1 GM/50 ML BAG IV (08:07)
[2022-02-06] MEDS: Zonisamide 50 MG Capsule PO (10:27)
--- NOTE | 2022-02-06 12:20 | ECHOD_ITS ---
Reason For Study: Pleural Effusion Procedure This was a 2D Doppler, Color Flow transthoracic echocardiogram. Exam performed portable in patient room. Left Ventricle Normal LV size. The estimated ejection fraction is 70 %. No evidence for diastolic dysfunction. No regional wall motion abnormalities noted. Right Ventricle Normal RV size. Normal systolic function. Atria Normal left atrium. Normal right atrium. No doppler evidence for ASD. Mitral Valve There is no mitral valve stenosis. Trivial mitral valve insufficiency. Tricuspid Valve There is no tricuspid stenosis. Trivial tricuspid valve insufficiency. Pulmonary artery systolic pressure is 55 mmHg. Aortic Valve Trisinus/trileaflet aortic valve. There is no aortic stenosis. No aortic valve insufficiency. Pulmonic Valve There is no pulmonic valvular stenosis. No pulmonic valve insufficiency. Great Vessels Normal aortic root. Pericardium/Pleural No pericardial effusion. MMode/2D Measurements & Calculations LVIDd: 4.2 cm IVSd: 1.0 cm Ao root diam: 3.3 cm LVIDs: 1.8 cm LVPWd: 0.92 cm RVDd: 2.7 cm FS: 56.5 % LAV(MOD-bp): 38.0 ml LVAd ap4: 22.1 cm2 SV(MOD-sp4): 39.3 ml LAV(MOD-bp) Indexed: 19.0 ml/m2 LVLd ap4: 7.2 cm LAV(MOD-sp2): 42.5 ml EDV(MOD-sp4): 55.5 ml LAV(MOD-sp4): 33.5 ml EDV(sp4-el): 57.3 ml LVAs ap4: 10.4 cm2 LVLs ap4: 5.8 cm ESV(MOD-sp4): 16.2 ml ESV(sp4-el): 15.7 ml EF(MOD-sp4): 70.8 % EF(sp4-el): 72.6 % SV(sp4-el): 41.6 ml LA A4 area: 14.0 cm2 LA dimension(2D): 4.0 cm RA A4 area: 8.0 cm2 Doppler Measurements & Calculations MV E max dwaine: 96.3 cm/sec Lat Peak E' Dwaine: 11.1 cm/sec Med Peak E' Dwaine: 5.1 cm/sec MV A max dwaine: 116.1 cm/sec E/E' lat: 8.7 E/E' med: 18.8 MV E/A: 0.83 Ao V2 max: 181.7 cm/sec LV V1 max: 134.6 cm/sec PA V2 max: 131.6 cm/sec Ao max P.2 mmHg LV V1 max P.2 mmHg Ao V2 mean: 123.7 cm/sec Ao mean P.8 mmHg Ao V2 VTI: 33.8 cm TR max dwaine: 329.4 cm/sec TR max P.4 mmHg ECHO/Echo Complete Interpretation Summary The estimated ejection fraction is 70 %. No evidence for diastolic dysfunction. Trivial mitral valve insufficiency. Pulmonary artery systolic pressure is 55 mmHg. Ordering Physician: Jagdish Arteaga Referring Physician: Sawyer Bacon Performed By: Lalitha Jackman, LUCRECIA, RVT
[2022-02-06] MEDS: Nystatin Powder 15gm Bottle 1 APPLIC TOPICAL ×2 (13:09→20:35)
[2022-02-06] MEDS: predniSONE 20 MG Tablet 40 MG PO (13:09)
[2022-02-06] MEDS: guaiFENesin 600 MG Tablet PO (20:35)
[2022-02-06] MEDS: QUEtiapine 100 MG Tablet PO (20:35)
[2022-02-07] VITALS (7 sets, daily range): BP systolic 98–112; BP diastolic 44–59; PULSE 81–94; RESP 16–18; TEMP 36.5–36.9; O2SAT 86–95
[2022-02-07] MEDS: Dicyclomine 10 MG Capsule PO (05:54)
[2022-02-07] MEDS: Nystatin Powder 15gm Bottle 1 APPLIC TOPICAL (05:54)
[2022-02-07] MEDS: Gabapentin 600 MG Tablet PO (05:54)
[2022-02-07 06:39] LABS: Absolute Lymphocyte Count 0.62 X10^3/uL (0.83-4.51); Absolute Neutrophil Count 6.8 X10^3/uL (2.0-7.7); Hematocrit 42.3 % (37-47); Lymphocyte # 0.62 X10^3/ul (0.83-4.51); Lymphocyte % 7.8 % (19-41); Mean Corp Hgb Conc 33.1 g/dL (32-36); Mean Corpuscular Hgb 30.5 pg (27.0-32.0); Mean Corpuscular Volume 92.2 fL (81-99); Mean Platelet Vol. 10.1 fl (6.2-12.0); Monocyte% 6.3 % (0-10); NRBC Flagged by Analyzer 0 % (0-5); Neutrophil # 6.79 X10^3/uL (2.7-7.7); Neutrophil % 85.5 % (47-70); Platelet Count 243 K/mm3 (150-450); RBC Distribution Width CV 13.2 % (11.6-14.6); RBC Distribution Width SD 44.1 fl (35.1-43.9); Red Blood Count 4.59 M/mm3 (4.2-5.4); White Blood Count 7.9 K/mm3 (4.4-11.0)
[2022-02-07 07:07] LABS: Anion Gap 3 (5-15); BUN 12 mg/dL (7-18); BUN/Creat Ratio 16.4 RATIO (10-20); Calcium,Total 8.6 mg/dL (8.5-10.1); Chloride 105 mmol/L (98-107); Creatinine, Serum 0.73 mg/dL (0.55-1.02); EST Glomerular Filtration Rate 86 mL/min (>60); Est Glom Filt Rate - Afr Amer 104 mL/min (>60); Estimated Creatinine Clearance 72.82 ml/min; Glucose 135 mg/dL (74-106); Potassium 4.6 mmol/L (3.5-5.1); Sodium Level 140 mmol/L (136-145)
--- NOTE | 2022-02-07 08:00 | RAD_ITS ---
STUDY: X-RAY CHEST REASON FOR EXAM: Female, 61 years old. Pleural effusion TECHNIQUE: Single AP portable view of the chest. COMPARISON: 02/06/2022. FINDINGS: Persistent right lower lung infiltrate essentially unchanged since the prior examination. Mild atelectatic changes in the left lung base. Small right pleural effusion extending to the minor fissure. Normal size heart. Normal mediastinum and antelmo. Normal visualized pulmonary arteries. There is atherosclerotic tortuosity of the aortic arch and descending thoracic aorta. No demonstrated acute osseous changes. There is no demonstrated abnormality of the visualized soft tissue structures of the upper abdomen. RAD/Chest 1 View (Portable) IMPRESSION: 1. Right lower lobe infiltrate and small pleural effusion essentially unchanged. 2. Mild left basilar atelectatic changes unchanged. Electronically Signed: Zenon Cameron MD at 8:24 EDT ,
[2022-02-07] MEDS: Pantoprazole Sodium 40 MG Tablet PO (08:02)
[2022-02-07] MEDS: Loratadine 10 MG Tablet PO (08:03)
[2022-02-07] MEDS: predniSONE 20 MG Tablet 40 MG PO (08:03)
[2022-02-07] MEDS: Atorvastatin Calcium 80 MG Tablet PO (08:03)
[2022-02-07] MEDS: Clopidogrel Bisulfate 75 MG Tablet PO (08:03)
[2022-02-07] MEDS: Zonisamide 50 MG Capsule PO (08:03)
[2022-02-07] MEDS: guaiFENesin 600 MG Tablet PO (08:03)
[2022-02-07] MEDS: oxyCODONE 5 MG Tablet PO (08:03)
--- NOTE | 2022-02-07 08:08 | PN.HOSP_ITS ---
Subjective Subjective Patient is a 61-year-old lady sent to the ED with increasing shortness of breath. Patient patient was on admission from 01/10-01/13 with similar presentation. Large right-sided pleural effusion underwent thoracocentesis cytology came back positive for malignant pleural effusion secondary to primary lung non-small cell adenocarcinoma with mets 02/07/2022; chest x-ray obtained this a.m. did not show worsening outpatient follow-up effusion. Patient will be assessed for possible discharge with a 6- minute walk Objective Data Objective Data Vital Signs: Vital Signs Temp Pulse Resp BP Pulse Ox O2 Del Method O2 Flow Rate 97.7 F L 84 16 98/50 L 94 Nasal Cannula 3 02/07/22 07:50 02/07/22 07:50 02/07/22 07:50 02/07/22 07:50 02/07/22 07:50 02/07/22 07:50 02/07/22 07:50 Oxygen Flow Rate (L/min) [ 3 AMBULATING with Oxygen #1] Oxygen Flow Rate (L/min) [At 3 REST with Oxygen] Oxygen Flow Rate (L/min) 3 Oxygen Delivery Method Nasal Cannula Weight: 92.6 kg Body Mass Index (BMI) 34.0 Intake & Output: Intake and Output for Last 24 Hours 02/05/22 02/06/22 02/07/22 23:59 23:59 23:59 Intake Total 1365 / 1365 1705 / 1705 Output Total 701 / 701 Balance 1365 / 1365 1004 / 1004 Lab / Micro Data Result Diagrams: 02/07/22 06:10 02/07/22 06:10 Labs: Laboratory Results - last 24 hr 02/07/22 06:10: WBC 7.9, RBC 4.59, Hgb 14.0, Hct 42.3, MCV 92.2, MCH 30.5, MCHC 33.1 D, RDW Std Deviation 44.1 H, RDW Coeff of Melia 13.2, Plt Count 243, MPV 10.1, Immature Gran % (Auto) 0.400, Neut % (Auto) 85.5 H, Lymph % (Auto) 7.8 L, [place] % (Auto) 6.3, Eos % (Auto) 0.0, Baso % (Auto) 0.0, Absolute Neuts (auto) 6.8, Absolute Lymphs (auto) 0.62 L, Nucleated RBC % 0 02/07/22 06:10: Sodium 140, Potassium 4.6, Chloride 105, Carbon Dioxide 32.0, Anion Gap 3 L, BUN 12, Creatinine 0.73, Estim Creat Clear Calc 72.82, Est GFR (MDRD) Af Amer 104, Est GFR (MDRD) Non-Af 86, BUN/Creatinine Ratio 16.4, Glucose 135 H, Calcium 8.6 Micro: Microbiology 02/05/22 18:20 Nasal Secretion SARS-CoV-2 Antigen (Rapid) - Final 02/05/22 18:00 Urine, Clean Catch Legionella Antigen - Final 02/05/22 18:00 Urine, Clean Catch Streptococcus pneumoniae Antigen (M - Final Radiography Diagnostic Testing: Radiology Impression Chest X-Ray 02/06/22 08:00 IMPRESSION: 1. Right lower lung infiltrate concerning for pneumonia increased since previous examination. 2. Small right pleural effusion. 3. Mild atelectatic changes in the left lung base. Electronically Signed: Zenon Cameron MD at 8:29 EDT , Physical Exam Narrative GENERAL: cooperative HEENT: Atraumatic; EYES; Anicteric, Normal Conjunctiva NECK; supple, normal thyroid, RESPIRATORY: Diminished to auscultation CARDIOVASCULAR: Regular S1 S2, GI: soft, normoactive bowel sounds, : No Renal angle tenderness; EXTREMITIES: No edema, no clubbing, MUSCULOSKELETAL: no muscle wasting NEURO: Awake; no lateralizing signs. SKIN: No Rash PSYCH; Flat affect Assessment & Plan Assessment/Plan (1) Acute respiratory failure with hypoxia: (2) Malignant pleural effusion: (3) Metastatic non-small cell lung cancer: PLAN: Plan Patient is a 61-year-old lady sent to the ED with increasing shortness of breath. Patient patient was on admission from 01/10-01/13 with similar presentation. Large right-sided pleural effusion underwent thoracocentesis cytology came back positive for malignant pleural effusion secondary to primary lung non-small cell adenocarcinoma with mets 1. Acute hypoxic respiratory failure with severe hypoxia ? Secondary to malignant pleural effusion with atelectasis. Placed on supplemental oxygen admitted to a monitored bed 2. Malignant pleural effusion secondary to adenocarcinoma involving the lung. ? Patient underwent therapeutic thoracocentesis History of CVA ? Patient is on antiplatelet therapy with Plavix 4. History of frontal lobe AVM ? Status postcraniotomy 5. Hypertension - Blood pressure controlled, home medications continued with dose adjustment as needed 6. Dyslipidemia -Patient is on statin therapy, continued at home dose 7. COPD ? Currently not in exacerbation aerosol treatments as needed 8. GERD ? On PPI 9. DVT prophylaxis ? [place] Charges/Coding Visit Charges Inpatient E&M: 31855 Subs Hosp L2
[2022-02-07] MEDS: Albuterol 2.5 MG/3 ML VIAL.NEB. INHALATION (08:30)
--- NOTE | 2022-02-07 10:16 | DS.PCM_ITS ---
Providers Date of Admission: 02/05/22 Date of Discharge: 02/07/22 Primary Care Physician: Dr. Sawyer Bacon MD Reason For Visit: PLEURAL EFFUSION, HYPOXIA Diagnosis Discharge Diagnosis (1) Acute respiratory failure with hypoxia: Status: Acute Code(s): J96.01 - Acute respiratory failure with hypoxia (2) Malignant pleural effusion: Status: Acute Code(s): J91.0 - Malignant pleural effusion (3) Metastatic non-small cell lung cancer: Status: Acute Code(s): C34.90 - Malignant neoplasm of unspecified part of unspecified bronchus or lung Plan Patient is a 61-year-old lady sent to the ED with increasing shortness of breath. Patient patient was on admission from 01/10-01/13 with similar presentation. Large right-sided pleural effusion underwent thoracocentesis cytology came back positive for malignant pleural effusion secondary to primary lung non-small cell adenocarcinoma with mets 1. Acute hypoxic respiratory failure with severe hypoxia ? Secondary to malignant pleural effusion with atelectasis. Placed on supplemental oxygen admitted to a monitored bed -Repeat chest x-ray on my 10/22/2021 did not show any worsening patient pleural effusion. Patient was assessed for home oxygen which she did qualify she would need portability since he is active both at home as well as in the community 2. Malignant pleural effusion secondary to adenocarcinoma involving the lung. ? Patient underwent therapeutic thoracocentesis History of CVA ? Patient is on antiplatelet therapy with Plavix 4. History of frontal lobe AVM ? Status postcraniotomy 5. Hypertension - Blood pressure controlled, home medications continued with dose adjustment as needed 6. Dyslipidemia -Patient is on statin therapy, continued at home dose 7. COPD ? Currently not in exacerbation aerosol treatments as needed 8. GERD ? On PPI 9. DVT prophylaxis ? SC Lovenox Medications at Discharge Home Medications atorvastatin 80 mg tablet 80 mg PO DAILY cholesterol 01/10/22 clopidogrel 75 mg tablet 75 mg PO DAILY clot prevention 01/10/22 dicyclomine 10 mg capsule 10 mg PO DAILY stomach 01/10/22 gabapentin 600 mg tablet 600 mg PO TID pain 01/10/22 loratadine 10 mg tablet 10 mg PO DAILY allergies 01/10/22 metoprolol succinate 50 mg capsule sprinkle, ext. release 24 hr 25 mg PO DAILY blood pressure 01/10/22 pantoprazole 40 mg tablet,delayed release 40 mg PO DAILY GERD 01/10/22 quetiapine 100 mg tablet (Seroquel) 100 mg PO QHS sleep 01/10/22 spironolactone 100 mg tablet 100 mg PO DAILY diuretic 01/10/22 zonisamide 50 mg capsule 50 mg PO DAILY stomach 01/10/22 albuterol sulfate 90 mcg/actuation aerosol inhaler 2 puff inhalation Q4H PRN Shortness Of Breath 01/19/22 azithromycin 500 mg tablet 500 mg PO DAILY 3 days #3 tabs 02/07/22 cefdinir 300 mg capsule 300 mg PO BID #10 caps 02/07/22 furosemide 20 mg tablet (Lasix) 20 mg PO BID #60 tabs 02/07/22 guaifenesin 600 mg tablet, extended release 12 hr (Mucus Relief ER) 600 mg PO BID #14 tabs 02/07/22 prednisone 20 mg tablet 40 mg PO BREAKFAST #5 tabs 02/07/22 Hospital Course Summary of Care Provided Minutes Spent on Discharge: 35 Physical Exam Narrative GENERAL: cooperative HEENT: Atraumatic; EYES; Anicteric, Normal Conjunctiva NECK; supple, normal thyroid, RESPIRATORY: Diminished to auscultation CARDIOVASCULAR: Regular S1 S2, GI: soft, normoactive bowel sounds, : No Renal angle tenderness; EXTREMITIES: No edema, no clubbing, MUSCULOSKELETAL: no muscle wasting NEURO: Awake; no lateralizing signs. SKIN: No Rash PSYCH; Flat affect Weight / BMI Weight Weight: 92.6 kg Body Mass Index (BMI) 34.0 ABG / Lab / Microbiology Data Result Diagrams: 02/07/22 06:10 02/07/22 06:10 Laboratory: Laboratory Results - last 24 hr 02/07/22 06:10: WBC 7.9, RBC 4.59, Hgb 14.0, Hct 42.3, MCV 92.2, MCH 30.5, MCHC 33.1 D, RDW Std Deviation 44.1 H, RDW Coeff of Melia 13.2, Plt Count 243, MPV 10.1, Immature Gran % (Auto) 0.400, Neut % (Auto) 85.5 H, Lymph % (Auto) 7.8 L, Whiteside % (Auto) 6.3, Eos % (Auto) 0.0, Baso % (Auto) 0.0, Absolute Neuts (auto) 6.8, Absolute Lymphs (auto) 0.62 L, Nucleated RBC % 0 02/07/22 06:10: Sodium 140, Potassium 4.6, Chloride 105, Carbon Dioxide 32.0, Anion Gap 3 L, BUN 12, Creatinine 0.73, Estim Creat Clear Calc 72.82, Est GFR (MDRD) Af Amer 104, Est GFR (MDRD) Non-Af 86, BUN/Creatinine Ratio 16.4, Glucose 135 H, Calcium 8.6 Microbiology: Microbiology 02/05/22 18:20 Nasal Secretion SARS-CoV-2 Antigen (Rapid) - Final 02/05/22 18:00 Urine, Clean Catch Legionella Antigen - Final 02/05/22 18:00 Urine, Clean Catch Streptococcus pneumoniae Antigen (M - Final Radiography Diagnostic Testing: Radiology Impression Chest X-Ray 02/07/22 08:00 IMPRESSION: 1. Right lower lobe infiltrate and small pleural effusion essentially unchanged. 2. Mild left basilar atelectatic changes unchanged. Electronically Signed: Zenon Cameron MD at 8:24 EDT , D/C Instructions Discharge Diet: No restrictions Discharge Activity: Return to Normal Activity Call your doctor if you observe: Fever of 101 or Higher, Shortness of breath, Fainting spells and Chest pain Meaningful Use Info Meaningful Use Diagnoses (Choose all that apply): None applicable Discharge Plan Admission Admit Date/Time: 02/05/22 14:51 Attending Provider: Junior Pavon Primary Care Provider: Sawyer Bacon Consulting Providers: Jagdish Arteaga Instructions Patient Instructions: ED Pleural Effusion Additional Instructions / Restrictions: You need to contact your oncologist to discuss treatment options for recurrent pleural effusion Discharge Orders/Prescriptions Prescriptions: New prednisone 20 mg Tablet 40 mg PO BREAKFAST Qty: 5 0RF guaifenesin [Mucus Relief ER] 600 mg Tablet Extended Release 12hr 600 mg PO BID Qty: 14 0RF cefdinir 300 mg capsule 300 mg PO BID Qty: 10 0RF azithromycin 500 mg tablet 500 mg PO DAILY 3 Days Qty: 3 0RF furosemide [Lasix] 20 mg tablet 20 mg PO BID Qty: 60 0RF Continued albuterol sulfate 90 mcg/actuation HFA aerosol inhaler 2 puff inhalation Q4H PRN (Reason: Shortness Of Breath) atorvastatin 80 mg Tablet 80 mg PO DAILY gabapentin 600 mg Tablet 600 mg PO TID spironolactone 100 mg Tablet 100 mg PO DAILY clopidogrel 75 mg Tablet 75 mg PO DAILY quetiapine [Seroquel] 100 mg Tablet 100 mg PO QHS pantoprazole 40 mg Tablet,Delayed Release (Dr/Ec) 40 mg PO DAILY dicyclomine 10 mg Capsule 10 mg PO DAILY loratadine 10 mg Tablet 10 mg PO DAILY zonisamide 50 mg Capsule 50 mg PO DAILY metoprolol succinate 50 mg Capsule,Sprinkle,Er 24hr 25 mg PO DAILY Referrals / Follow Up: Sawyer Bacon MD [Primary Care Provider] - 5-7 Days Disposition Disposition (needs filled in before D/C Order can be placed): Home, Self Care Charges/Coding Visit Charges Inpatient E&M: 12651 Disch Hosp
[2022-02-07] MEDS: Ceftriaxone 1 GM/50 ML BAG IV (10:22)
[2022-02-07] MEDS: Enoxaparin 40 MG/0.4 ML Syringe SC (10:22)
== END 2022-02-07 13:22 | disposition home or self-care (01) | DRG 205 ==
LOC: ED 16:38 → PCU 02-05 02:08
PROVIDERS: Emergency Provider Emergency Medicine; PCP Family Medicine; Visit Provider Internal Medicine
DX: J98.11 Atelectasis (principal); J96.01 Acute respiratory failure with hypoxia; C34.90 Malignant neoplasm of unspecified part of unspecified bronchus or lung; C78.00 Secondary malignant neoplasm of unspecified lung; J91.0 Malignant pleural effusion; J44.9 Chronic obstructive pulmonary disease, unspecified; K21.9 Gastro-esophageal reflux disease without esophagitis; I10 Essential (primary) hypertension; E78.00 Pure hypercholesterolemia, unspecified; F41.9 Anxiety disorder, unspecified; F17.210 Nicotine dependence, cigarettes, uncomplicated; F32.A Depression, unspecified; E66.9 Obesity, unspecified; Z68.34 Body mass index [BMI] 34.0-34.9, adult; Z20.822 Contact with and (suspected) exposure to COVID-19; Z79.02 Long term (current) use of antithrombotics/antiplatelets; Z79.899 Other long term (current) drug therapy; Z86.73 Personal history of transient ischemic attack (TIA), and cerebral infarction without residual deficits
CPT/HCPCS: 36415; 71045; 80048; 80053; 83605; 84484; 85025; 87426; 87449; 93005; 93306; 94640; 94667; 94668; 99285; J7040; A4216